=== PATIENT | female | born 1975 | race Two or more races ===

== ENCOUNTER 2024-10-21 02:45 | Inpatient (IN) | payer OTHER, MEDICAID ==
[~2024-10-21] VITALS: Ht 162.6 cm; Wt 161.1 kg
--- NOTE | 2024-10-21 03:23 | ED.PDOC ---
GI ASSESSMENT HPI Comments 48 year old female came to Er due to abdominal pain. Patient recently diagnosed with gallstones, for the past few days has been having epigastric pain, radiating to her right upper quadrant and upper back. Said abdominal pain would persists and was advised by her PCP to come to the ER. Chief Complaint: Abdominal Pain Time Seen by MD: 03:23 Reviewed Notes: Nurses Notes Allergies: Coded Allergies: Cephalexin (Verified Allergy, Intermediate, hives, 10/21/24) Home Meds Reported Medications Pantoprazole Sodium Sesquihydr (Pantoprazole Sodium) 40 Mg Tab, 1 TAB PO DAILY 10/21/24 Lisinopril (Lisinopril) 40 Mg Tab, 1 TAB PO DAILY 10/21/24 Metoprolol Tartrate (Lopressor) 25 Mg Tb, 1 TAB PO BID 10/21/24 Potassium Chloride (Potassium Chloride ER) 10 Meq Tab, 1 TAB PO DAILY 10/21/24 Atorvastatin Calcium (ATORVASTATIN CALCIUM) 20 Mg Tab, 1 TAB PO DAILY 10/21/24 Information Source: Patient Mode of Arrival: Ambulatory Timing: Days Duration: Since onset Prehospital treatment: None Quality: Cramping Vomitus: None Stool: Normal Severity: Moderate Recent: None Recent Hx of: Ulcer Disease, Abdominal Surgery Pain Location: Epigastric Modifying Factors: Nothing Associated sign and symptoms: Abdominal Pain Past Medical History PAST MEDICAL HISTORY: CHF, CVA, DM, Gallstones, GERD, TIA Surgical History: , Hysterectomy, Tonsillectomy SURGEON ASSISTANT History: Denies all SURGEON ASSISTANT Hx Family History Family History: Reviewed,noncontributory to illness Social History Smoker: Non-Smoker Alcohol: Denies ETOH Use Drugs: Denies Drug Use Lives In: Home Constitutional: denies: chills, diaphoresis, fatigue, fever, malaise, sweats, weakness, others EENTM: denies: blurred vision, double vision, ear bleeding, ear discharge, ear drainage, ear pain, ear ringing, eye pain, eye redness, hearing loss, mouth pain, mouth swelling, nasal discharge, nose bleeding, nose congestion, nose pain, photophobia, tearing, throat pain, throat swelling, voice changes, others Respiratory: denies: cough, hemoptysis, orthopnea, SOB at rest, shortness of breath, SOB with excertion, stridor, wheezing, others Cardiovascular: denies: chest pain, dizzy spells, diaphoresis, Dyspnea on exertion, edema, irregular heart beat, left arm pain, lightheadedness, pa lpitations, PND, syncope, others Gastrointestinal: reports: abdominal pain; denies: abdomen distended, blood streaked bowels, constipated, diarrhea, dysphagia, difficulty swallowing, hematemesis, melena, nausea, poor appetite, poor fluid intake, rectal bleeding, rectal pain, vomiting, others Genitourinary: denies: abnormal vagina bleeding, burning, dyspareunia, dysuria, flank pain, frequency, hematuria, incontinence, pain, , vagina dis charge, urgency, others Neurological: denies: dizziness, fainting, headache, left sided numbness, left sided weakness, numbness, paresthesia, pre-existing deficit, right sided numbness, right sided weakness, seizure, speech problems, tingling, tremors, weakness, others Musculoskeletal: denies: back pain, gout, joint pain, joint swelling, muscle pain, muscle stiffness, neck pain, others Integumetry: denies: bruises, change in color, change in hair/nails, dryness, laceration, lesions, lumps, rash, wounds, others Allergic/Immunocompromised: denies: Difficulty Healing, Frequent Infections, Hives, Itching, others Hematologic/Lymphatic: denies: anemia, blood clots, easy bleeding, easy bruising, swollen glands, others Endocrine: denies: excessive hunger, excessive sweating, excessive thirst, excessive urination, flushing, intolerance to cold, intolerance to heat, unexplained weight gain, unexplained weight loss, others Psychiatric: denies: anxiety, bipolar disorder, depression, hopeless, panic disorder, schizophrenia, sleepless, suicidal, others Physical Exam General Appearance: Moderate Distress, Normal HEENT: Normal ENT Inspection, Pharynx Normal, TMs Normal Neck: Full Range of Motion, Non-Tender, Normal, Normal Inspection Respiratory: Chest Non-Tender, Lungs Clear, No Accessory Muscle Use, No Respiratory Distress, Normal Breath Sounds Cardiovascular: No Edema, No JVD, No Murmur, No Gallop, Normal Peripheral Pulses, Regular Rate/Rhythm Breast Exam: Deferred Gastrointestinal: No Organomegaly, Non Tender, No Pulsatile Mass, Normal Bowel Sounds, Soft Genitalia: Deferred Pelvic: Deferred Rectal: Deferred Extremities: No calf tenderness, Normal capillary refill, Normal inspection, Normal range of motion, Non-tender, No pedal edema Musculoskeletal : Apperance: Normal Neurologic: Alert, automation test engineer II-XII nml as Tested, No Motor Deficits, Normal Affect, Normal Mood, No Sensory Deficits Cerebellar Function: NOT DONE Reflexes: NOT DONE Skin: Dry, Normal Color, Warm Peripheral Pulses: 3+ Radial (R), 3+ Radial (L) Lymphatic: No Adenopathy Was a procedure done? Was a procedure done?: No GI differential Dx Differential Diagnosis: Cholecystitis, Constipation, Diverticular disease, Gastritis/PUD, Gastroenteritis, Pancreatitis, UTI, Urolithiasis, Electrolyte Imbalance, Food Poisoning X-Ray, Labs, Meds, VS Vital Signs Date Time Temp Pulse Resp B/P (MAP) Pulse Ox O2 Delivery O2 Flow Rate FiO2 10/21/24 09:55 97.6 92 18 108/69 (82) 95 97.6 10/21/24 07:33 95 20 95 Room Air 10/21/24 07:33 98.0 95 20 102/54 (70) 95 98.0 10/21/24 05:34 89 18 101/65 10/21/24 04:41 97 20 122/73 10/21/24 04:25 97.7 97 20 122/73 (89) 96 97.7 10/21/24 03:07 97.6 99 18 129/78 (95) 98 Lab Test 10/21/24 03:27 10/21/24 03:13 Range/Units White Blood Count 11.9 H 4.4-10.8 10^3/uL Red Blood Count 5.07 4.0-5.20 10^6/uL Hemoglobin 13.7 12.2-16.2 g/dL Hematocrit 42.5 36.0-46.0 % Mean Corpuscular Volume 83.8 80.0-100.0 fL Mean Corpuscular Hemoglobin 27.1 L 28.0-32.0 pg Mean Corpuscular Hemoglobin Concent 32.4 32.0-36.0 g/dL Red Cell Distribution Width 15.3 H 11.8-14.3 % Platelet Count 266 140-450 10^3/uL Mean Platelet Volume 9.3 6.9-10.8 fL Neutrophils (%) (Auto) 58.3 37.0-80.0 % Lymphocytes (%) (Auto) 30.6 10.0-50.0 % Monocytes (%) (Auto) 9.4 0.0-12.0 % Eosinophils (%) (Auto) 1.0 0.0-7.0 % Basophils (%) (Auto) 0.7 0.0-2.0 % Neutrophils # (Auto) 6.9 1.6-8.6 10 ^3/uL Lymphocytes # (Auto) 3.6 0.4-5.4 10 ^3/uL Monocytes # (Auto) 1.1 0-1.3 10 ^3/uL Eosinophils # (Auto) 0.1 0-0.8 10 ^3/uL Basophils # (Auto) 0.1 0-0.2 10 ^3/uL Nucleated Red Blood Cells 0.1 % Sodium Level 143 136-145 mmol/L Potassium Level 3.5 3.5-5.1 mmol/L Chloride Level 104 98-107 mmol/L Carbon Dioxide Level 27 20-31 mmol/L Anion Gap 12 5-15 Blood Urea Nitrogen 42 H 9-23 mg/dL Creatinine 1.77 H 0.550-1.02 mg/dL Glomerular Filtration Rate Calc 35 >90 mL/min BUN/Creatinine Ratio 23.7 H 10.0-20.0 Serum Glucose 88 74-106 mg/dL Calcium Level 10.0 8.7-10.4 mg/dL Phosphorus Level 5.8 H 2.4-5.1 mg/dL Magnesium Level 2.4 1.6-2.6 mg/dL Total Bilirubin 0.6 0.2-1.0 mg/dL Aspartate Amino Transferase (AST) 18 13-40 U/L Alanine Aminotransferase (ALT) 29 7-40 U/L Alkaline Phosphatase 109 46-116 U/L B-Type Natriuretic Peptide 34.72 0-100 pg/mL Total Protein 7.7 5.7-8.2 g/dL Albumin 4.8 3.2-4.8 g/dL Lipase 53 12-53 U/L Vitamin D 25-Hydroxy Pending Parathyroid Hormone (Intact) Pending Urine Color Yellow Yellow Urine Clarity Clear Clear Urine pH 5.0 5.0-9.0 Urine Specific [place] 1.024 1.001-1.035 Urine Protein Trace H Negative Urine Ketones Negative Negative Urine Blood Negative Negative /uL Urine Nitrite Negative Negative Urine Bilirubin Negative Negative Urine Urobilinogen Normal Negative mg/dL Urine Leukocyte Esterase Trace Negative /uL Urine RBC 2 0 - 4 /hpf Urine WBC 1 0 - 5 /hpf Urine Squamous Epithelial Cells Few <5 /hpf Urine Bacteria Few H None Seen /hpf Urine Hyaline Casts Many 0 - 2 /lpf Urine Glucose Normal Normal mg/dL Current Medications Medications (Trade) Dose Ordered Sig/Zoila Route Start Time Stop Time Status Last Admin Ondansetron HCl (Zofran) 4 mg ONCE ONCE IV 10/21/24 03:15 10/21/24 03:17 DC 10/21/24 04:40 Hydromorphone HCl (Dilaudid Injection) 1 mg ONCE ONCE IV 10/21/24 03:15 10/21/24 03:17 DC 10/21/24 04:41 Ketorolac Tromethamine (Toradol Injection) 15 mg ONCE ONCE IV 10/21/24 03:15 10/21/24 03:17 DC 10/21/24 04:40 Patient alert. Came in for abdominal pain. Vitals stable. Answering all questions. Continues to have abdominal pain. Was given pain medication. Was given Zofran. WBC elevated. Hemoglobin within normal limits. Reviewed her history. Explained to the patient. Continue cardiac monitoring. Time of 1ST Reevaluation: 03:18 Reevaluation 1ST: Unchanged Time of 2ND Reevaluation: 05:44 (awaiting Gallbladder ultrasound , labs reviewed and interpreted by me show no major concerns) Reevaluation 2ND: Unchanged Patient Education/Counseling: Diagnosis, Treatment Family Education/Counseling: No Family Present Departure 1 Departure Time of Disposition: 07:45 Impression: Primary Impression: Acute abdominal pain Additional Impression: Gallbladder disease Disposition: 09 ADMITTED INPATIENT Admit to: Med Surg Condition: Guarded Critical Care Note Critical Care Time?: No Stability Stability form required: No Heart Score Heart Score: Heart Score Response (Comments) Value History N/A 0 EKG N/A 0 Age N/A 0 Risk Factors N/A 0 Troponin N/A 0 Total 0 I personally scribed for SARAH JOSHUA MD ([email or web address]) on 10/21/24 at 03:23. Electronically submitted by Parviz Roberts ([email or web address]). I personally scribed for SARAH JOSHUA MD ([email or web address]) on 10/21/24 at 03:29. Electronically submitted by Parviz Roberts ([email or web address]). SARAH JOSHUA MD Oct 21, 2024 03:23 ZULEYKA MORRIS MD Oct 21, 2024 07:46
[2024-10-21 03:35] LABS: Basophils # (auto) 0.1 10 ^3/uL (0-0.2); Basophils % (auto) 0.7 % (0.0-2.0); Eosinophils # (auto) 0.1 10 ^3/uL (0-0.8); Hematocrit 42.5 % (36.0-46.0); Hemoglobin 13.7 g/dL (12.2-16.2); Lymphocytes # (auto) 3.6 10 ^3/uL (0.4-5.4); Lymphocytes % (auto) 30.6 % (10.0-50.0); Mean Corpuscular Hemoglobin 27.1 pg (28.0-32.0); Mean Corpuscular Hgb Conc. 32.4 g/dL (32.0-36.0); Mean Corpuscular Volume 83.8 fL (80.0-100.0); Monocytes # (auto) 1.1 10 ^3/uL (0-1.3); Monocytes % (auto) 9.4 % (0.0-12.0); Neutrophils # (auto) 6.9 10 ^3/uL (1.6-8.6); Neutrophils % (auto) 58.3 % (37.0-80.0); Nucleated Red Blood Cells % 0.1 %; Platelet Count (auto) 266 10^3/uL (140-450); Red Blood Cells 5.07 10^6/uL (4.0-5.20); Red Cell Distribution Width 15.3 % (11.8-14.3); White Blood Cell 11.9 10^3/uL (4.4-10.8)
[2024-10-21 04:06] LABS: Alanine Aminotransferase 29 U/L (7-40); Albumin 4.8 g/dL (3.2-4.8); Alkaline Phosphatase 109 U/L (46-116); Anion Gap 12 (5-15); Aspartate Aminotransferase 18 U/L (13-40); BUN/Creatinine Ratio 23.7 (10.0-20.0); Carbon Dioxide 27 mmol/L (20-31); Chloride 104 mmol/L (98-107); Glucose 88 mg/dL (74-106); Potassium 3.5 mmol/L (3.5-5.1); Sodium 143 mmol/L (136-145)
[2024-10-21 04:07] LABS: Bilirubin, Total 0.6 mg/dL (0.2-1.0); Total Protein 7.7 g/dL (5.7-8.2)
[2024-10-21 04:07] LABS: Urine Bacteria FEW /hpf (None Seen); Urine Blood Negative /uL (Negative); Urine Clarity Clear (Clear); Urine Color Yellow (Yellow); Urine Hyaline Cast MANY /lpf (0 - 2); Urine Protein, UAD TRACE (Negative); Urine Specific Gravity 1.024 (1.001-1.035); Urine Squamous Epithelial Cell FEW /hpf (<5); Urine Urobilinogen Normal (Negative); Urine WBC 1 /hpf (0 - 5)
[2024-10-21 04:22] LABS: Blood Urea Nitrogen 42 mg/dL (9-23); Lipase 53 U/L (12-53)
[2024-10-21] MEDS: KETOROLAC TROMETH 30 MG/ML 1ML VIAL IV ONE (04:40)
[2024-10-21] MEDS: ONDANSETRON HCL 4 MG/2 ML VIAL IV ONE (04:40)
[2024-10-21] MEDS: HYDROmorphone HCL 2 MG/ML VL/or syr IV ONE (04:41)
--- NOTE | 2024-10-21 07:42 | DVH ---
INDICATION: RUQ pain, h/o gallstones TECHNIQUE: Real time ultrasonography of the right upper quadrant was performed. COMPARISON: None FINDINGS: The liver appears normal in echogenicity estimated 16.2 cm. Gallbladder appears unremarkable without evidence of pericholecystic fluid, wall thickening, or cholelithiasis. Common bile duct is obscured. The right kidney estimated at 9.6 cm in length and appears unremarkable. Obscured pancreas and intra hepatic IVC. IMPRESSION: 1. Limited but unremarkable evaluation of the right upper quadrant.
[2024-10-21] MEDS ORDERED: ACETAMINOPHEN 325 MG TAB PO PRN (11:15)
[2024-10-21] MEDS ORDERED: ONDANSETRON HCL 4 MG/2 ML VIAL IV PRN (11:15)
[2024-10-21] MEDS ORDERED: MET25T PO (11:35)
[2024-10-21] MEDS ORDERED: PANT40T PO (11:35)
[2024-10-21] MEDS ORDERED: LISI40TA16 PO (11:35)
[2024-10-21] MEDS ORDERED: POTA-228 PO (11:35)
[2024-10-21] MEDS ORDERED: ATOR20TA50 PO (11:35)
--- NOTE | 2024-10-21 11:54 | DVHHP2 ---
History of Present Illness Reason for Visit: abdominal pain History of Present Illness Jennifer Guzman is a 48-year-old female with past medical history of CHF, CVA with bilateral weakness, gallstones, GERD, abdominal reconstruction, brain tumors, , hysterectomy, and tonsillectomy presents to the ED with abominal pain x1 month but per patient got progressively worse within the last day. She states that her pain is pressure-like and burning also cramping and it of 10 and constant. Patient also reports that she went to [facility] recently and was diagnosed with gallstones but apparently surgery was delayed. Patient reports that she has a history of CVAs weakness in both right and left uses a cane for ambulation. Patient also reports urge incontinence when voiding. Patient denies fever, chills, chest pain, shortness of breath, headache, lightheadedness, and dizziness. 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 GI: GERD Past Medical History Brain tumors Past Surgical History: , Hysterectomy, Other, Tonsillectomy Past Surgical History abdominal reconstruction Family History: Cancer, CVA, Other (Both mom and dad's side have CA, heart disease, stroke, and DJD) Smoke: No ALCOHOL: none Drugs: None Lives: with Family Domestic Violence: Neg Review of Systems Constitutional: No: Fever, Chills, Sweats, Weakness, Malaise, Other Eyes: No: Pain, Vision change, Conjunctivae inflammation, Eyelid inflammation, Other, Redness ENT: No: Ear pain, Ear discharge, Nose pain, Nose discharge, Nose congestion, Mouth pain, Mouth swelling, Throat pain, Throat swelling, Other Respiratory: No: Cough, Dry, Shortness of breath, SOB with excertion, Wheezing, Hemoptysis, Pleuritic Pain, Sputum, Wheezing, Other Cardiovascular: No: Chest Pain, Palpitations, Orthopnea, Paroxysmal Noc. Dyspnea, Edema, Lt Headedness, Other Gastrointestinal: Abdominal Pain; No: Nausea, Vomiting, Diarrhea, Constipation, Melena, Hematochezia, Other Genitourinary: No Dysuria, No Frequency; Incontinence; No Hematuria, No Retention, No Other Musculoskeletal: No: other, neck pain, shoulder pain, arm pain, back pain, hand pain, leg pain, foot pain Skin: No: Rash, Lesions, Jaundice, Bruising, Other Neurological: Weakness (hx of CVA with edgar weakness) Allergies: Coded Allergies: Cephalexin (Verified Allergy, Intermediate, hives, 10/21/24) Exam Vital Signs Vital Signs Date Time Temp Pulse Resp B/P (MAP) Pulse Ox O2 Delivery O2 Flow Rate FiO2 10/21/24 09:55 97.6 92 18 108/69 (82) 95 97.6 10/21/24 07:33 Room Air General Appearance: Alert, Oriented X3, Cooperative, No acute distress HEENT: Atraumatic, PERRLA, EOMI, Mucous membr. moist/pink Respiratory: Clear to auscultation, Normal air movement Cardiovascular: Normal S1, Normal S2, No murmurs Abdominal: Soft, No hepatospenomegaly, No masses Extremities: No clubbing, No cyanosis, No edema, Normal pulses Skin: No breakdown, No significant lesion Neuro: Normal speech, Normal tone, Sensation intact, Other (uses cane and hx of CVA edgar weakness) Psych/Mental Status: Mental status NL, Mood NL Labs/Xrays Labs Test 10/21/24 03:27 10/21/24 03:13 Range/Units White Blood Count 11.9 H 4.4-10.8 10^3/uL Red Blood Count 5.07 4.0-5.20 10^6/uL Hemoglobin 13.7 12.2-16.2 g/dL Hematocrit 42.5 36.0-46.0 % Mean Corpuscular Volume 83.8 80.0-100.0 fL Mean Corpuscular Hemoglobin 27.1 L 28.0-32.0 pg Mean Corpuscular Hemoglobin Concent 32.4 32.0-36.0 g/dL Red Cell Distribution Width 15.3 H 11.8-14.3 % Platelet Count 266 140-450 10^3/uL Mean Platelet Volume 9.3 6.9-10.8 fL Neutrophils (%) (Auto) 58.3 37.0-80.0 % Lymphocytes (%) (Auto) 30.6 10.0-50.0 % Monocytes (%) (Auto) 9.4 0.0-12.0 % Eosinophils (%) (Auto) 1.0 0.0-7.0 % Basophils (%) (Auto) 0.7 0.0-2.0 % Neutrophils # (Auto) 6.9 1.6-8.6 10 ^3/uL Lymphocytes # (Auto) 3.6 0.4-5.4 10 ^3/uL Monocytes # (Auto) 1.1 0-1.3 10 ^3/uL Eosinophils # (Auto) 0.1 0-0.8 10 ^3/uL Basophils # (Auto) 0.1 0-0.2 10 ^3/uL Nucleated Red Blood Cells 0.1 % Sodium Level 143 136-145 mmol/L Potassium Level 3.5 3.5-5.1 mmol/L Chloride Level 104 98-107 mmol/L Carbon Dioxide Level 27 20-31 mmol/L Anion Gap 12 5-15 Blood Urea Nitrogen 42 H 9-23 mg/dL Creatinine 1.77 H 0.550-1.02 mg/dL Glomerular Filtration Rate Calc 35 >90 mL/min BUN/Creatinine Ratio 23.7 H 10.0-20.0 Serum Glucose 88 74-106 mg/dL Calcium Level 10.0 8.7-10.4 mg/dL Total Bilirubin 0.6 0.2-1.0 mg/dL Aspartate Amino Transferase (AST) 18 13-40 U/L Alanine Aminotransferase (ALT) 29 7-40 U/L Alkaline Phosphatase 109 46-116 U/L Total Protein 7.7 5.7-8.2 g/dL Albumin 4.8 3.2-4.8 g/dL Lipase 53 12-53 U/L Urine Color Yellow Yellow Urine Clarity Clear Clear Urine pH 5.0 5.0-9.0 Urine Specific [place] 1.024 1.001-1.035 Urine Protein Trace H Negative Urine Ketones Negative Negative Urine Blood Negative Negative /uL Urine Nitrite Negative Negative Urine Bilirubin Negative Negative Urine Urobilinogen Normal Negative mg/dL Urine Leukocyte Esterase Trace Negative /uL Urine RBC 2 0 - 4 /hpf Urine WBC 1 0 - 5 /hpf Urine Squamous Epithelial Cells Few <5 /hpf Urine Bacteria Few H None Seen /hpf Urine Hyaline Casts Many 0 - 2 /lpf Urine Glucose Normal Normal mg/dL INDICATION: RUQ pain, h/o gallstones TECHNIQUE: Real time ultrasonography of the right upper quadrant was performed. COMPARISON: None FINDINGS: The liver appears normal in echogenicity estimated 16.2 cm. Gallbladder appears unremarkable without evidence of pericholecystic fluid, wall thickening, or cholelithiasis. Common bile duct is obscured. The right kidney estimated at 9.6 cm in length and appears unremarkable. Obscured pancreas and intrahepatic IVC. IMPRESSION: 1. Limited but unremarkable evaluation of the right upper quadrant. Exam: CT CT AB PEL WO CON-NO ORAL OR IV History: abd pain Comparison Study: None available at time of dictation. TECHNIQUE: Multidetector CT of the abdomen was performed from lung bases to pubic symphysis. Imaging was performed without IV contrast. Axial, coronal and sagittal multiplanar reformats were obtained from the axial data set by the technologist. Radiation Dose Information: CT Dose: CTDI volume is 27.67 mGy. Dose-length product is 1562.46 mGy*cm FINDINGS: Evaluation of solid organs is limited due to lack of intravenous contrast use. Findings: Lung Bases: No acute or significant lung base finding. Normal heart size. No pleural or pericardial effusion. Liver: The liver is normal in size. No focal lesions. Gallbladder and Biliary Tree: Unremarkable Spleen: Unremarkable Pancreas: The pancreas is grossly normal in appearance. Adrenal Glands: Unremarkable Kidneys: Kidneys are grossly normal without calculi or hydronephrosis. Bladder: Grossly unremarkable for degree of distention. Bowel: The stomach is grossly normal in appearance. Small bowel and colon are normal in caliber and distribution. The appendix is not visualized; however, no secondary findings of acute appendicitis identified. Ascites: Absent Lymphadenopathy: No mesenteric, retroperitoneal or periportal lymphadenopathy. Abdominal Wall and Mesentery: Unremarkable. Vasculature: The visualized abdominal aorta is normal in size and caliber. Evaluation of abdominal and pelvic vessels is limited due to lack of intravenous contrast. Pelvic Organs: Unremarkable Musculoskeletal: No aggressive focal bony lesions, acute fractures or dislocation. Bony spondylosis degenerative disc changes throughout the lumbar spine. Soft tissues: Unremarkable IMPRESSION: 1. No calcified gallstones 2. No CT findings suggest bowel obstruction. Moderately large stool burden throughout the colon correlate for possible constipation. 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 CONS 10/21/24 Verified -[place] 11:01 Furosemide Injection PHA 10/22/24 Verified (Lasix Injection) 10:00 NS PHA 10/21/24 Verified 11:15 Ceftriaxone Ivpb PHA 10/22/24 Verified Rocephin 09:00 Ceftriaxone Ivpb PHA 10/21/24 Verified Rocephin 11:15 Admit ADMIT 10/21/24 Verified 11:01 Allergies MARKO 10/21/24 Verified 11:01 Code Status CODE 10/21/24 Verified 11:01 Hydrocodone-Acet PHA 10/21/24 Verified 5/325mg Tab ([place] 11:15 Ondansetron Hcl PHA 10/21/24 Verified (Zofran) 11:15 Complete Blood Count LAB 10/22/24 Verified 04:00 Comprehensive LAB 10/22/24 Verified Metabolic Panel 04:00 Npo (Nothing By DIET 10/21/24 Verified Mouth) Diet Lunch Acetaminophen Tablet PHA 10/21/24 Verified (Tylenol Tablet) 11:15 Morphine Sulfate PHA 10/21/24 Verified Injection 11:15 Aspirin Enteric PHA 10/22/24 Verified Coated Tablet 10:00 Aspirin Enteric PHA 10/21/24 Verified Coated Tablet 11:15 Date of Service: Oct 21, 2024 Billing Provider: PHI ZUNIGA Common Visit Codes: 98010-BITOSEI INP/OBS CARE (MOD) PHI ZUNIGA Oct 21, 2024 11:54
[2024-10-21] MEDS: SODIUM CHLORIDE 0.9% 1,000 ML IV SCH (11:56)
[2024-10-21] MEDS: ASPirin-EC 81 mg tab PO ONE (12:02)
--- NOTE | 2024-10-21 12:28 | DVH ---
Exam: CT CT AB PEL WO CON-NO ORAL OR IV History: abd pain Comparison Study: None available at time of dictation. TECHNIQUE: Multidetector CT of the abdomen was performed from lung bases to pubic symphysis. Imaging was performed without IV contrast. Axial, coronal and sagittal multiplanar reformats were obtained fr om the axial data set by the technologist. Radiation Dose Information: CT Dose: CTDI volume is 27.67 mGy. Dose-length product is 1562.46 mGy*cm FINDINGS: Evaluation of solid organs is limited due to lack of intravenous contrast use. Findings: Lung Bases: No acute or significant lung base finding. Normal heart size. No pleural or pericardial effusion. Liver: The liver is normal in size. No focal lesions. Gallbladder and Biliary Tree: Unremarkable Spleen: Unremarkable Pancreas: The pancreas is grossly normal in appearance. Adrenal Glands: Unremarkable Kidneys: Kidneys are grossly normal without calculi or hydronephrosis. Bladder: Grossly unremarkable for degree of distention. Bowel: The stomach is grossly normal in appearance. Small bowel and colon are normal in caliber and d istribution. The appendix is not visualized; however, no secondary findings of acute appendicitis id entified. Ascites: Absent Lymphadenopathy: No mesenteric, retroperitoneal or periportal lymphadenopathy. Abdominal Wall and Mesentery: Unremarkable. Vasculature: The visualized abdominal aorta is normal in size and caliber. Evaluation of abdominal a nd pelvic vessels is limited due to lack of intravenous contrast. Pelvic Organs: Unremarkable Musculoskeletal: No aggressive focal bony lesions, acute fractures or dislocation. Bony spondylosis d egenerative disc changes throughout the lumbar spine. Soft tissues: Unremarkable IMPRESSION: 1. No calcified gallstones 2. No CT findings suggest bowel obstruction. Moderately large stool burden throughout the colon corre late for possible constipation. HS:Y Radiation optimization: All CT scans at this facility use at least one of these dose optimization santosh hniques: automated exposure control mA and/or kV adjustment per patient size (includes targeted exam s where dose is matched to clinical indication) or iterative reconstruction.
[2024-10-21] MEDS: cefTRIAXone 1GM/50ML D5W 50 ML IV ONE (12:33)
[2024-10-21] MEDS ORDERED: DOCUSATE SOD 100 MG CAP PO PRN (13:00)
--- NOTE | 2024-10-21 13:58 | DVH ---
CHEST RADIOGRAPH Indication: HF Technique: Single frontal view of the chest was obtained COMPARISON: None FINDINGS: Lines and Tubes: None Lungs: Clear Pleura: No effusion. No pneumothorax. Cardiomediastinal contours: Unremarkable Bones: Unremarkable IMPRESSION: 1. Mild dextroscoliosis of the thoracolumbar spine. 2. No infiltrates 3. No pleural effusions or adenopathy
--- NOTE | 2024-10-21 15:24 | DVHINCON2 ---
Date of service: Oct 21, 2024 Referring Physician Caron Roldan NP Reason for Consultation Acute kidney injury History of Present Illness Patient is 48-year-old obese female with past medical history significant for CVA, DM, Gallstones, GERD, morbid obesity and TIA is admitted for abdominal pa in. On admission patient found to have elevated BUN and creatinine nephrology is consulted for acute kidney injury Past Medical History PAST MEDICAL HISTORY: CVA, DM, Gallstones, GERD, TIA, morbid obesity Past Surgical History Surgical History: , Hysterectomy, Tonsillectomy Allergies: Coded Allergies: Cephalexin (Verified Allergy, Intermediate, hives, 10/21/24) Home Meds Reported Medications Pantoprazole Sodium Sesquihydr (Pantoprazole Sodium) 40 Mg Tab, 1 TAB PO DAILY 10/21/24 Lisinopril (Lisinopril) 40 Mg Tab, 1 TAB PO DAILY 10/21/24 Metoprolol Tartrate (Lopressor) 25 Mg Tb, 1 TAB PO BID 10/21/24 Potassium Chloride (Potassium Chloride ER) 10 Meq Tab, 1 TAB PO DAILY 10/21/24 Atorvastatin Calcium (ATORVASTATIN CALCIUM) 20 Mg Tab, 1 TAB PO DAILY 10/21/24 Current Medications Current Medications Medications (Trade) Dose Ordered Sig/Zoila Route PRN Reason Start Time Stop Time Status Last Admin Furosemide (Lasix Injection) 40 mg DAILY IV 10/22/24 10:00 10/22/24 09:01 Ceftriaxone Sodium 50 ml @ 100 mls/hr DAILY@09 IV 10/22/24 09:00 10/22/24 08:52 Aspirin (Ecotrin Enteric Coated Tablet) 81 mg DAILY PO 10/22/24 10:00 10/22/24 09:04 Docusate Sodium (Colace Capsule) 100 mg DAILYPRN PRN PO FOR CONSTIPATION 10/21/24 13:00 Review of Systems All 12 item review of systems reviewed with the patient nonsignificant except what is mentioned in the history of present illness H&P Exam Vital Signs/I&O Vital Sign Date Time Temp Pulse Resp B/P (MAP) Pulse Ox O2 Delivery O2 Flow Rate FiO2 10/22/24 12:25 79 20 107/58 10/22/24 10:53 97.8 95 97.8 10/22/24 08:05 Room Air* 0 21 Intake and Output 10/21/24 10/22/24 19:00 07:00 Intake Total 425 ml 300 ml Balance 425 ml 300 ml Intake Oral 300 ml IV Total 425 ml # Voids 1 Physical Exam Obese female awake and alert Lungs clear to auscultation bilaterally Cardiac exam regular rate and rhythm GI obese bowel sounds are present normal Extremities no clubbing cyanosis or edema Neuro nonfocal Labs/Diagnostic Data Labs/Diagnostic Data Laboratory Tests Test 10/22/24 04:57 10/21/24 03:27 10/21/24 03:13 Range/Units White Blood Count 9.6 11.9 H 4.4-10.8 10^3/uL Red Blood Count 4.11 5.07 4.0-5.20 10^6/uL Hemoglobin 11.2 #L 13.7 12.2-16.2 g/dL Hematocrit 34.5 #L 42.5 36.0-46.0 % Mean Corpuscular Volume 83.9 83.8 80.0-100.0 fL Mean Corpuscular Hemoglobin 27.2 L 27.1 L 28.0-32.0 pg Mean Corpuscular Hemoglobin Concent 32.4 32.4 32.0-36.0 g/dL Red Cell Distribution Width 15.2 H 15.3 H 11.8-14.3 % Platelet Count 204 266 140-450 10^3/uL Mean Platelet Volume 9.7 9.3 6.9-10.8 fL Neutrophils (%) (Auto) 64.3 58.3 37.0-80.0 % Lymphocytes (%) (Auto) 25.2 30.6 10.0-50.0 % Monocytes (%) (Auto) 8.1 9.4 0.0-12.0 % Eosinophils (%) (Auto) 2.1 1.0 0.0-7.0 % Basophils (%) (Auto) 0.3 0.7 0.0-2.0 % Neutrophils # (Auto) 6.2 6.9 1.6-8.6 10 ^3/uL Lymphocytes # (Auto) 2.4 3.6 0.4-5.4 10 ^3/uL Monocytes # (Auto) 0.8 1.1 0-1.3 10 ^3/uL Eosinophils # (Auto) 0.2 0.1 0-0.8 10 ^3/uL Basophils # (Auto) 0 0.1 0-0.2 10 ^3/uL Nucleated Red Blood Cells 0.0 0.1 % Sodium Level 139 143 136-145 mmol/L Potassium Level 4.1 3.5 3.5-5.1 mmol/L Chloride Level 105 104 98-107 mmol/L Carbon Dioxide Level 29 27 20-31 mmol/L Anion Gap 5 12 5-15 Blood Urea Nitrogen 42 H 42 H 9-23 mg/dL Creatinine 1.42 H 1.77 H 0.550-1.02 mg/dL Glomerular Filtration Rate Calc 46 35 >90 mL/min BUN/Creatinine Ratio 29.6 H 23.7 H 10.0-20.0 Serum Glucose 118 H 88 74-106 mg/dL Calcium Level 9.1 10.0 8.7-10.4 mg/dL Total Bilirubin 0.5 0.6 0.2-1.0 mg/dL Aspartate Amino Transferase (AST) 19 18 13-40 U/L Alanine Aminotransferase (ALT) 22 29 7-40 U/L Alkaline Phosphatase 93 109 46-116 U/L Total Protein 5.9 7.7 5.7-8.2 g/dL Albumin 3.7 4.8 3.2-4.8 g/dL Phosphorus Level 5.8 H 2.4-5.1 mg/dL Magnesium Level 2.4 1.6-2.6 mg/dL B-Type Natriuretic Peptide 34.72 0-100 pg/mL Lipase 53 12-53 U/L Urine Color Yellow Yellow Urine Clarity Clear Clear Urine pH 5.0 5.0-9.0 Urine Specific [place] 1.024 1.001-1.035 Urine Protein Trace H Negative Urine Ketones Negative Negative Urine Blood Negative Negative /uL Urine Nitrite Negative Negative Urine Bilirubin Negative Negative Urine Urobilinogen Normal Negative mg/dL Urine Leukocyte Esterase Trace Negative /uL Urine RBC 2 0 - 4 /hpf Urine WBC 1 0 - 5 /hpf Urine Squamous Epithelial Cells Few <5 /hpf Urine Bacteria Few H None Seen /hpf Urine Hyaline Casts Many 0 - 2 /lpf Urine Glucose Normal Normal mg/dL Assessment Acute kidney injury superimposed Chronic Kidney Disease secondary to Hemodynamic mediated Diabetic ketoacidosis Uncontrolled diabetes mellitus Hyperglycemia Hyponatremia due to dehydration Anemia of chronic kidney disease Recommendations Closely monitor fluid and electrolytes Avoid nephrotoxic medications Strict I&Os Change IV fluid to hypotonic half normal saline Kidney ultrasound reported questionable left hydronephrosis Insulin sliding scale Check amylase and lipase We will continue to follow Patient seen and examined by myself. I discussed my plan of care with the patient, her and the primary nurse at the bedside I would like to thank Caron for the consult, will follow Plan discussed with: Patient, Spouse ANNABELLE EWING MD Oct 21, 2024 15:24
[2024-10-21 15:49] LABS: Magnesium 2.4 mg/dL (1.6-2.6)
[2024-10-21 15:52] LABS: Phosphorus 5.8 mg/dL (2.4-5.1)
[2024-10-21 17:44] VITALS: BP 144/77; PULSE 86; RESP 16; TEMP 97.8; O2SAT 95; O2SAT 99
[2024-10-21 20:00] VITALS: PULSE 86; RESP 16; O2SAT 100
[2024-10-21 21:00] VITALS: BP 109/56; PULSE 86; RESP 16; TEMP 98.1; O2SAT 100
[2024-10-21] MEDS: MORPHINE SULFATE INJ 2 MG/ml SYRG IV PRN (23:53)
[2024-10-22] VITALS (7 sets, daily range): BP systolic 111–129; BP diastolic 53–74; PULSE 85–90; RESP 14–18; TEMP 97.8–98.1; O2SAT 93–100
[2024-10-22 05:46] LABS: Basophils # (auto) 0 10 ^3/uL (0-0.2); Basophils % (auto) 0.3 % (0.0-2.0); Eosinophils # (auto) 0.2 10 ^3/uL (0-0.8); Eosinophils % (auto) 2.1 % (0.0-7.0); Hematocrit 34.5 % (36.0-46.0); Hemoglobin 11.2 g/dL (12.2-16.2); Lymphocytes # (auto) 2.4 10 ^3/uL (0.4-5.4); Lymphocytes % (auto) 25.2 % (10.0-50.0); Mean Corpuscular Hemoglobin 27.2 pg (28.0-32.0); Mean Corpuscular Hgb Conc. 32.4 g/dL (32.0-36.0); Mean Corpuscular Volume 83.9 fL (80.0-100.0); Monocytes # (auto) 0.8 10 ^3/uL (0-1.3); Monocytes % (auto) 8.1 % (0.0-12.0); Neutrophils # (auto) 6.2 10 ^3/uL (1.6-8.6); Neutrophils % (auto) 64.3 % (37.0-80.0); Platelet Count (auto) 204 10^3/uL (140-450); Red Blood Cells 4.11 10^6/uL (4.0-5.20); Red Cell Distribution Width 15.2 % (11.8-14.3); White Blood Cell 9.6 10^3/uL (4.4-10.8)
[2024-10-22 06:04] LABS: Alanine Aminotransferase 22 U/L (7-40); Alkaline Phosphatase 93 U/L (46-116); Anion Gap 5 (5-15); Aspartate Aminotransferase 19 U/L (13-40); Calcium 9.1 mg/dL (8.7-10.4); Carbon Dioxide 29 mmol/L (20-31); Chloride 105 mmol/L (98-107); Potassium 4.1 mmol/L (3.5-5.1); Sodium 139 mmol/L (136-145)
[2024-10-22 06:05] LABS: Albumin 3.7 g/dL (3.2-4.8); BUN/Creatinine Ratio 29.6 (10.0-20.0); Bilirubin, Total 0.5 mg/dL (0.2-1.0)
[2024-10-22 06:06] LABS: Total Protein 5.9 g/dL (5.7-8.2)
[2024-10-22 06:07] LABS: Blood Urea Nitrogen 42 mg/dL (9-23); Glucose 118 mg/dL (74-106)
[2024-10-22] MEDS: cefTRIAXone 1GM/50ML D5W 50 ML IV SCH (08:52)
[2024-10-22] MEDS: FUROSEMIDE 40 MG/4 ML VIAL IV SCH (09:01)
[2024-10-22] MEDS: ASPirin-EC 81 mg tab PO SCH (09:04)
[2024-10-22] MEDS: HYDROmorphone HCL 2 MG/ML VL/or syr IV ONE (12:25)
--- NOTE | 2024-10-22 12:39 | DVHPN2 ---
Progress Note Date Seen: Oct 22, 2024 Medical Necessity Reason Pt with a Central, PICC or Fol: No Subjective Review of Systems: GI:Abnormal Other Systems: Patient seen and examined by myself today in follow-up Objective vital signs Vital Sign Date Time Temp Pulse Resp B/P (MAP) Pulse Ox O2 Delivery O2 Flow Rate FiO2 10/22/24 12:25 79 20 107/58 10/22/24 10:53 97.8 95 97.8 10/22/24 08:05 Room Air* 0 21 Total Intake and Output 10/21/24 10/21/24 10/22/24 15:00 23:00 07:00 Intake Total 275 ml 150 ml 300 ml Balance 275 ml 150 ml 300 ml medications Current Medications Medications Dose Ordered Sig/Zoila Route Start Time Stop Time Status Last Admin Dose Admin Furosemide 40 mg DAILY IV 10/22/24 10:00 10/22/24 09:01 Sodium Chloride 1,000 ml @ 75 mls/hr [id number] IV 10/21/24 11:15 10/21/24 11:56 Ceftriaxone Sodium 50 ml @ 100 mls/hr DAILY@09 IV 10/22/24 09:00 10/22/24 08:52 Acetaminophen/ Hydrocodone Bitart 1 tab Q4HP PRN PO 10/21/24 11:15 Ondansetron HCl 4 mg Q4HP PRN IV 10/21/24 11:15 Acetaminophen 650 mg Q6HP PRN PO 10/21/24 11:15 Morphine Sulfate 2 mg Q4HPRN PRN IV 10/21/24 11:15 10/22/24 06:16 Aspirin 81 mg DAILY PO 10/22/24 10:00 10/22/24 09:04 Docusate Sodium 100 mg DAILYPRN PRN PO 10/21/24 13:00 Examination: LUNGS:Normal, CVS:Normal, MSK:Normal laboratory and microbiology Laboratory Tests 10/22/24 04:57 Test 10/22/24 04:57 Range/Units Serum Glucose 118 H 74-106 mg/dL Problem List/Assessment/Plan Problem List/Assessment/Plan Acute kidney injury superimposed Chronic Kidney Disease stage 3 secondary hemodynamic mediated Morbid obesity Abdominal pain Diabetes mellitus type 2 Anemia of chronic kidney disease Recommendations Kidney function is improving No urine output charted Strict I&Os Insulin sliding scale Kidneys reported within normal limit on the CT scan GI consult We will continue to follow up Plan discussed with: Patient, Spouse My Orders My Orders Orders - ANNABELLE EWING MD Procedure Category Date Status Time Vitamin D, 25-Hydroxy LAB 10/21/24 In Process 15:32 Urine Sodium LAB 10/21/24 Logged 15:32 Urine LAB 10/21/24 Logged Protein/Creatinine Urine Creatinine LAB 10/21/24 Logged 15:32 ANNABELLE EWING MD Oct 22, 2024 12:39
[2024-10-22] MEDS: HYDROcodone-ACET 5/325MG TAB PO PRN (20:32)
--- NOTE | 2024-10-22 22:20 | DVHPN2 ---
Subjective The patient is seen and examined at bedside. Complain of severe pain and requests Dilaudid. Patient said she allergic to morphine. Reviewed: Care Plan, H&P, Labs, Medications, Previous Orders, Radiology Changes from previous H/P or p: No Changes Eyes: No Pain, No Vision change, No Conjunctivae inflammation, No Eyelid inflammation, No Other, No Redness ENT: No Ear pain, No Ear discharge, No Nose pain, No Nose discharge, No Nose congestion, No Mouth pain, No Mouth swelling, No Throat pain, No Throat swelling, No Other Cardiovascular: No Chest Pain, No Palpitations, No Orthopnea, No Paroxysmal Noc. Dyspnea, No Edema, No Lt Headedness, No Other Respiratory: No Cough, No Dry, No Shortness of breath, No SOB with excertion, No Wheezing, No Hemoptysis, No Pleuritic Pain, No Sputum, No Other Gastrointestinal: No Nausea, No Vomiting; Abdominal Pain; No Diarrhea, No Constipation, No Melena, No Hematochezia, No Other Genitourinary: No Dysuria, No Frequency; Incontinence; No Hematuria, No Retention, No Other Musculoskeletal: No other, No neck pain, No shoulder pain, No arm pain, No back pain, No hand pain, No leg pain, No foot pain Skin: No Rash, No Lesions, No Jaundice, No Bruising, No Other Objective Vitals Vital Signs Date Time Temp Pulse Resp B/P (MAP) Pulse Ox O2 Delivery O2 Flow Rate FiO2 10/22/24 21:00 98.1 87 18 126/74 (91) 94 98.1 10/22/24 08:05 Room Air* 0 21 Intake/Output Intake and Output 10/22/24 07:00 Intake Total 725 ml Balance 725 ml Intake Oral 300 ml IV Total 425 ml # Voids 1 General Appearance: Alert, Oriented X3, Cooperative, No acute distress HEENT: Atraumatic, PERRLA, EOMI, Mucous membr. moist/pink Neck: Supple Lungs: Clear to auscultation, Normal air movement Cardiovascular: Regular rate, Normal S1, Normal S2, No murmurs, Gallops, Rubs Abdomen: Normal bowel sounds, Soft, No tenderness Neuro: Cranial nerves 3-12 NL Psych/Mental Status: Mental status NL Medications Current Medications Medications Dose Ordered Sig/Zoila Route Start Time Stop Time Status Last Admin Dose Admin Furosemide 40 mg DAILY IV 10/22/24 10:00 10/22/24 09:01 40 MG Sodium Chloride 1,000 ml @ 75 mls/hr [id number] IV 10/21/24 11:15 10/21/24 11:56 75 MLS/HR Ceftriaxone Sodium 50 ml @ 100 mls/hr DAILY@09 IV 10/22/24 09:00 10/22/24 08:52 100 MLS/HR Acetaminophen/ Hydrocodone Bitart 1 tab Q4HP PRN PO 10/21/24 11:15 10/22/24 20:32 1 TAB Ondansetron HCl 4 mg Q4HP PRN IV 10/21/24 11:15 Acetaminophen 650 mg Q6HP PRN PO 10/21/24 11:15 Morphine Sulfate 2 mg Q4HPRN PRN IV 10/21/24 11:15 10/22/24 06:16 2 MG Aspirin 81 mg DAILY PO 10/22/24 10:00 10/22/24 09:04 81 MG Docusate Sodium 100 mg DAILYPRN PRN PO 10/21/24 13:00 Laboratory Results Laboratory Tests 10/22/24 04:57 Chemistry Test 10/22/24 04:57 Albumin 3.7 g/dL (3.2-4.8) Calcium Level 9.1 mg/dL (8.7-10.4) Total Protein 5.9 g/dL (5.7-8.2) LFT Test 10/22/24 04:57 Alanine Aminotransferase (ALT) 22 U/L (7-40) Alkaline Phosphatase 93 U/L (46-116) Aspartate Amino Transferase (AST) 19 U/L (13-40) Total Bilirubin 0.5 mg/dL (0.2-1.0) Urinalysis Test 10/21/24 03:13 Urine Color Yellow (Yellow) Urine Clarity Clear (Clear) Urine pH 5.0 (5.0-9.0) Urine Specific [place] 1.024 (1.001-1.035) Urine Protein Trace (Negative) H Urine Ketones Negative (Negative) Urine Blood Negative /uL (Negative) Urine Nitrite Negative (Negative) Urine Bilirubin Negative (Negative) Urine Urobilinogen Normal mg/dL (Negative) Urine Leukocyte Esterase Trace /uL (Negative) Urine RBC 2 /hpf (0 - 4) Urine WBC 1 /hpf (0 - 5) Urine Squamous Epithelial Cells Few /hpf (<5) Urine Bacteria Few /hpf (None Seen) H Urine Hyaline Casts Many /lpf (0 - 2) Urine Glucose Normal mg/dL (Normal) Labs and/or images reviewed: Labs reviewed by me Assessment/Plan Assessment/Plan Intractable abdominal pain Leukocytosis likely 2nd to UTI BROOK on CKD 3 Chronic CVA GERD CHF Brain tumors,f/u outpatient Continuing current management. Continuing with Zofran p.r.n. for nausea and and vomiting. Continuing with IV antibiotic Rocephin. Appreciate Nephrology input. Continuing with [place] for pain control. I will give her one dose of dilaudid. This medical document was created using an electronic medical record system with [employer] computerized dictation system. Although this document has been carefully reviewed, there may still be some phonetic and typographical errors. These areas are purely typographical due to imperfections of the software programs, and do not reflect any compromise in the patient's medical care. Plan discussed with: Patient Date of Service: Oct 22, 2024 Billing Provider: RADU WOODARD MD Common Visit Codes: [id number] INP/OBS CARE(HIGH) RADU WOODARD MD Oct 22, 2024 22:20
[2024-10-23 05:00] VITALS: BP 131/83; PULSE 84; RESP 18; TEMP 98; O2SAT 93
[2024-10-23 08:30] VITALS: BP 166/83; PULSE 80; RESP 19; TEMP 98.4; O2SAT 94
[2024-10-23 11:32] LABS: Basophils # (auto) 0 10 ^3/uL (0-0.2); Basophils % (auto) 0.4 % (0.0-2.0); Eosinophils # (auto) 0.2 10 ^3/uL (0-0.8); Hematocrit 40.2 % (36.0-46.0); Hemoglobin 12.9 g/dL (12.2-16.2); Lymphocytes # (auto) 2.3 10 ^3/uL (0.4-5.4); Lymphocytes % (auto) 27.5 % (10.0-50.0); Mean Corpuscular Hemoglobin 27.5 pg (28.0-32.0); Mean Corpuscular Volume 85.8 fL (80.0-100.0); Monocytes # (auto) 0.5 10 ^3/uL (0-1.3); Monocytes % (auto) 5.5 % (0.0-12.0); Neutrophils # (auto) 5.5 10 ^3/uL (1.6-8.6); Neutrophils % (auto) 64.6 % (37.0-80.0); Nucleated Red Blood Cells % 0.1 %; Platelet Count (auto) 232 10^3/uL (140-450); Red Blood Cells 4.68 10^6/uL (4.0-5.20); Red Cell Distribution Width 15.5 % (11.8-14.3); White Blood Cell 8.5 10^3/uL (4.4-10.8)
[2024-10-23 11:38] LABS: Anion Gap 8 (5-15); Carbon Dioxide 26 mmol/L (20-31); Chloride 105 mmol/L (98-107); Potassium 4.1 mmol/L (3.5-5.1); Sodium 139 mmol/L (136-145)
[2024-10-23 11:39] LABS: Calcium 9.7 mg/dL (8.7-10.4)
--- NOTE | 2024-10-23 11:41 | DVHDS2 ---
Discharge Summary Date of Admission Oct 21, 2024 at 11:01 Date of Discharge: Oct 23, 2024 Admitting Diagnosis Intractable abdominal pain Leukocytosis likely 2nd to UTI BROOK on CKD 3 Chronic CVA GERD CHF Brain tumors,f/u outpatient Labs/Diagnostic Data: Laboratory Results Test 10/23/24 11:00 10/22/24 04:57 10/21/24 03:27 10/21/24 03:13 Eosinophils (%) (Auto) 2.1 % (0.0-7.0) Eosinophils # (Auto) 0.2 10 ^3/uL (0-0.8) Basophils # (Auto) 0 10 ^3/uL (0-0.2) Nucleated Red Blood Cells 0.0 % Total Bilirubin 0.5 mg/dL (0.2-1.0) Aspartate Amino Transferase (AST) 19 U/L (13-40) Alanine Aminotransferase (ALT) 22 U/L (7-40) Alkaline Phosphatase 93 U/L (46-116) Total Protein 5.9 g/dL (5.7-8.2) Albumin 3.7 g/dL (3.2-4.8) Phosphorus Level 5.8 mg/dL (2.4-5.1) Magnesium Level 2.4 mg/dL (1.6-2.6) B-Type Natriuretic Peptide 34.72 pg/mL (0-100) Lipase 53 U/L (12-53) Vitamin D 25-Hydroxy 34.8 ng/mL (30.0-100) Parathyroid Hormone (Intact) 107.7 pg/mL (18.4-80.1) Urine Color Yellow (Yellow) Urine Clarity Clear (Clear) Urine pH 5.0 (5.0-9.0) Urine Specific [place] 1.024 (1.001-1.035) Urine Protein Trace (Negative) Urine Ketones Negative (Negative) Urine Blood Negative /uL (Negative) Urine Nitrite Negative (Negative) Urine Bilirubin Negative (Negative) Urine Urobilinogen Normal mg/dL (Negative) Urine Leukocyte Esterase Trace /uL (Negative) Urine RBC 2 /hpf (0 - 4) Urine WBC 1 /hpf (0 - 5) Urine Squamous Epithelial Cells Few /hpf (<5) Urine Bacteria Few /hpf (None Seen) Urine Hyaline Casts Many /lpf (0 - 2) Urine Glucose Normal mg/dL (Normal) Brief Hx & Hospital Course: This is a 48 years old female with past medical history of congestive heart failure, CVA, bilateral weakness, gallstone, GERD, abdominal reconstruction surgery, brain tumor, came to emergency department because of severe abdominal pain for one month. Per patient is scale progressive worse for last couple day. She complained that pain is pressure-like and burning cramping. The patient said that she recently was at [place] and was diagnosis with gallstone but apparently surgery was delay. Patient had urge incontinence when voiding. Patient denied fever, chill. The patient was admitted. Workup was done. Ultrasound of gallbladder showed: The liver appears normal in echogenicity estimated 16.2 cm. Gallbladder appears unremarkable without evidence of pericholecystic fluid, wall thickening, or cholelithiasis. Common bile duct is obscured. The right kidney estimated at 9.6 cm in length and appears unremarkable. Obscured pancreas and intrahepatic IVC. The patient also treat for UTI with Rocephin 1 g IV q.day. The patient adamant requests Dilaudid. Patient said only Dilaudid work with her pain. The patient received two dose of Dilaudid. The patient was not in pain when got distracted. So today I am discharge the patient home. Advised the patient to follow up with primary care physician 1-2 weeks. Explained to the patient that her ultrasound is normal. But if she continuing to have pain in need to repeat ultrasound she can talk to her primary care physician and referred to surgeon if there is a need for gallbladder surgery. At this point the gallbladder per ultrasound showed no evidence of stone or cholecystitis. Physical exam: HEENT: Normocephalic atraumatic pupils equal react to light and accommodation. Extraocular muscles intact, conjunctiva pink, oropharynx moist, no thrush, no exudate. Lymphatic: No lymphadenopathy Cardiovascular exam: S1, S2 was heard. No murmurs, rubs, gallops Lung: Clear on auscultation bilaterally, no wheeze, rale, rhonchi. GI: Abdominal soft, nondistended, nontenderness, positive bowel sounds. Extremity: No crepitus, cyanosis, edema. Pedal pulses present bilateral. Full range of motion. Skin: Normal turgor, no rash. Psych: Alert, oriented x3. Neurology: No focal deficits, cranial nerve II to XII grossly intact. This medical document was created using an electronic medical record system with [employer] computerized dictation system. Although this document has been carefully reviewed, there may still be some phonetic and typographical errors. These areas are purely typographical due to imperfections of the software programs, and do not reflect any compromise in the patient's medical care. Condition at Discharge: Stable Final Diagnosis/Problems List Intractable abdominal pain Leukocytosis likely 2nd to UTI BROOK on CKD 3 Chronic CVA GERD CHF Brain tumors,f/u outpatient Discharge Disposition: Home Discharge Statement: "Patient was advised to return to the ER or call 911 if any headaches, dizziness, shortness of breath, chest pain, abdominal pain, bleeding, fevers, or worsening of medical condition. Patient was counseled about treatment plan, medications, possible side effects, patientverbalized understanding. All questions were answered to the best of my ability. This discharge took greater then 30 minutes in planning, reviewing documentation, counseling the patient, and discussing with other team members." ASSESSMENT ASSESSMENT Assessment Date of Service: Oct 23, 2024 Billing Provider: RADU WOODARD MD Common Visit Codes: 39300-RHP/OBS DISCH DAY >30min RADU WOODARD MD Oct 23, 2024 11:41
[2024-10-23 11:44] LABS: BUN/Creatinine Ratio 21.5 (10.0-20.0); Blood Urea Nitrogen 17 mg/dL (9-23); Glucose 109 mg/dL (74-106)
[2024-10-23] MEDS ORDERED: CEPH250C PO (11:51)
[2024-10-23 12:33] VITALS: BP 129/105; PULSE 81; RESP 18; TEMP 97.6; O2SAT 96
[2024-10-23 13:02] VITALS: BP 166/83; PULSE 80; RESP 19; TEMP 98.4; O2SAT 94
[2024-10-23] MEDS ORDERED: LEVO500T91 PO (14:51)
== END 2024-10-23 15:44 | disposition home or self-care (01) | DRG 689 ==
LOC: ER 02:45 → OVERFLOW 11:01 → WEST WING 17:44
PROVIDERS: ATTEND Internal Medicine
DX: N30.00 Acute cystitis without hematuria (principal); N17.0 Acute kidney failure with tubular necrosis; R65.11 Systemic inflammatory response syndrome (SIRS) of non-infectious origin with acute organ dysfunction; E87.1 Hypo-osmolality and hyponatremia; E86.0 Dehydration; E11.22 Type 2 diabetes mellitus with diabetic chronic kidney disease; I50.9 Heart failure, unspecified; D49.6 Neoplasm of unspecified behavior of brain; K21.9 Gastro-esophageal reflux disease without esophagitis; N39.41 Urge incontinence; D63.1 Anemia in chronic kidney disease; K80.20 Calculus of gallbladder without cholecystitis without obstruction; E66.01 Morbid (severe) obesity due to excess calories; N18.30 Chronic kidney disease, stage 3 unspecified; Z88.1 Allergy status to other antibiotic agents; Z79.899 Other long term (current) drug therapy; Z90.710 Acquired absence of both cervix and uterus; Z86.73 Personal history of transient ischemic attack (TIA), and cerebral infarction without residual deficits; Z82.3 Family history of stroke; Z88.5 Allergy status to narcotic agent
CPT/HCPCS: 36415; 71045; 74176; 76705; 80048; 80053; 81001; 82306; 83690; 83735; 83880; 83970; 84100; 85025; G0378; J1885; J2405

== ENCOUNTER 2025-09-18 22:18 | Inpatient (IN) | payer OTHER, BC, MEDICAID ==
[~2025-09-18] VITALS: Ht 160 cm; Wt 111.3 kg
[~2025-09-18 22:18] MED LIST: ATOR20TA50 PO; LEVO500T91 PO; LISI40TA16 PO; MET25T PO; PANT40T PO; POTA-228 PO
--- NOTE | 2025-09-18 23:23 | ED.PDOC ---
GI ASSESSMENT HPI Comments 49-year-old female with a past medical history of hypertension, hyperlipidemia, GERD, fibromyalgia, type 2 diabetes (not taking any medication, controlled by herself), 7 CVA events (no residual weakness) and severe COVID (3 years ago, was hospitalized for 5 and half months) has come to the ER with complaints of abdominal pain. Patient reports that 5 hours ago, she had sudden onset of acute epigastric pain, burning, throbbing and cramp like in nature, 10/10 in intensity which has been constant, with no aggravating or relieving factors and associated with nausea, 1 episode of diarrhea (she had to stay in the bathroom for over 2 hours). Patient denies any vomiting, recent travel history, chest pain, shortness of breath, food that might have caused it, GERD or urinary symptoms. Vitals on initial assessment were stable. Chief Complaint: Abdominal Pain Time Seen by MD: 23:06 Primary Care Provider: Dr. Brito Reviewed Notes: Medications, Allergies Allergies: Coded Allergies: Cephalexin (Verified Allergy, Intermediate, hives, 10/21/24) Home Meds Active Scripts Levofloxacin Hemihydrate (LEVAQUIN 500 MG) 500 Mg Tab, 1 TAB PO DAILY, #7 TAB Prov:RADU WOODARD MD 10/23/24 Reported Medications Pantoprazole Sodium Sesquihydr (Pantoprazole Sodium) 40 Mg Tab, 1 TAB PO DAILY 10/21/24 Lisinopril (Lisinopril) 40 Mg Tab, 1 TAB PO DAILY 10/21/24 Metoprolol Tartrate (Lopressor) 25 Mg Tb, 1 TAB PO BID 10/21/24 Potassium Chloride (Potassium Chloride ER) 10 Meq Tab, 1 TAB PO DAILY 10/21/24 Atorvastatin Calcium (ATORVASTATIN CALCIUM) 20 Mg Tab, 1 TAB PO DAILY 10/21/24 Information Source: Patient Mode of Arrival: Ambulatory Timing: Hours Duration: Hours Prehospital treatment: None Quality: Burning, Cramping, Other (Throbbing) Vomitus: None Stool: Loose Severity: Severe Recent: Laxative Use Recent Hx of: None Pain Location: Epigastric Modifying Factors: Nothing Associated sign and symptoms: Nausea, Diarrhea, Abdominal Pain Past Medical History PAST MEDICAL HISTORY: CHF, CVA, DM, Gallstones, GERD, TIA Past Medical History (Other): Fibromyalgia Surgical History: , Hysterectomy, Tonsillectomy Surgical History (Other): Cystocele, rectocele, prolapse vagina 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) Family History Family History: Reviewed,noncontributory to illness Social History Smoker: Non-Smoker Alcohol: Denies ETOH Use Drugs: Denies Drug Use Lives In: Home Constitutional: denies: chills, diaphoresis, fatigue, fever, malaise, sweats, weakness, others EENTM: denies: blurred vision, double vision, ear bleeding, ear discharge, ear drainage, ear pain, ear ringing, eye pain, eye redness, hearing loss, mouth pain, mouth swelling, nasal discharge, nose bleeding, nose congestion, nose pain, photophobia, tearing, throat pain, throat swelling, voice changes, others Respiratory: denies: cough, hemoptysis, orthopnea, SOB at rest, shortness of breath, SOB with excertion, stridor, wheezing, others Cardiovascular: denies: chest pain, dizzy spells, diaphoresis, Dyspnea on exertion, edema, irregular heart beat, left arm pain, lightheadedness, palpitations, PND, syncope, others Gastrointestinal: reports: abdominal pain, diarrhea, nausea; denies: abdomen distended, blood streaked bowels, constipated, dysphagia, difficulty swallowing, hematemesis, melena, poor appetite, poor fluid intake, rectal bleeding, rectal pain, vomiting, others Genitourinary: denies: abnormal vagina bleeding, burning, dyspareunia, dysuria, flank pain, frequency, hematuria, incontinence, pain, , vagina discharge, urgency, others Neurological: denies: dizziness, fainting, headache, left sided numbness, left sided weakness, numbness, paresthesia, pre-existing deficit, right sided numbness, right sided weakness, seizure, speech problems, tingling, tremors, weakness, others Musculoskeletal: reports: back pain; denies: gout, joint pain, joint swelling, muscle pain, muscle stiffness, neck pain, others Integumetry: denies: bruises, change in color, change in hair/nails, dryness, laceration, lesions, lumps, rash, wounds, others Hematologic/Lymphatic: denies: anemia, blood clots, easy bleeding, easy bruising, swollen glands, others Endocrine: denies: excessive hunger, excessive sweating, excessive thirst, excessive urination, flushing, intolerance to cold, intolerance to heat, unexplained weight gain, unexplained weight loss, others Psychiatric: denies: anxiety, bipolar disorder, depression, hopeless, panic disorder, schizophrenia, sleepless, suicidal, others Physical Exam General Appearance: Severe Distress HEENT: None Neck: Normal Respiratory: Normal Breath Sounds Cardiovascular: None Breast Exam: Deferred Gastrointestinal: Epigastric, Tenderness Genitalia: Deferred Pelvic: Deferred Rectal: Deferred Extremities: Normal inspection, Normal range of motion Neurologic: None Cerebellar Function: Normal Reflexes: Normal Skin: Normal Color Lymphatic: None Was a procedure done? Was a procedure done?: No GI differential Dx Differential Diagnosis: Gastritis/PUD, Gastroenteritis X-Ray, Labs, Meds, VS Vital Signs Date Time Temp Pulse Resp B/P (MAP) Pulse Ox O2 Delivery O2 Flow Rate FiO2 09/18/25 22:33 98.7 71 20 119/60 98 98.7 Lab Test 09/18/25 23:22 Range/Units White Blood Count 14.7 H 4.4-10.8 10^3/uL Red Blood Count 4.68 4.0-5.20 10^6/uL Hemoglobin 12.3 12.2-16.2 g/dL Hematocrit 39.1 36.0-46.0 % Mean Corpuscular Volume 83.4 80.0-100.0 fL Mean Corpuscular Hemoglobin 26.2 L 28.0-32.0 pg Mean Corpuscular Hemoglobin Concent 31.5 L 32.0-36.0 g/dL Red Cell Distribution Width 14.7 H 11.8-14.3 % Platelet Count 354 140-450 10^3/uL Mean Platelet Volume 8.8 6.9-10.8 fL Neutrophils (%) (Auto) 66.9 37.0-80.0 % Lymphocytes (%) (Auto) 21.9 10.0-50.0 % Monocytes (%) (Auto) 9.7 0.0-12.0 % Eosinophils (%) (Auto) 0.8 0.0-7.0 % Basophils (%) (Auto) 0.7 0.0-2.0 % Neutrophils # (Auto) 9.8 H 1.6-8.6 10 ^3/uL Lymphocytes # (Auto) 3.2 0.4-5.4 10 ^3/uL Monocytes # (Auto) 1.4 H 0-1.3 10 ^3/uL Eosinophils # (Auto) 0.1 0-0.8 10 ^3/uL Basophils # (Auto) 0.1 0-0.2 10 ^3/uL Nucleated Red Blood Cells 0.0 % Sodium Level 138 136-145 mmol/L Potassium Level 4.0 3.5-5.1 mmol/L Chloride Level 104 98-107 mmol/L Carbon Dioxide Level 22 20-31 mmol/L Anion Gap 12 5-15 Blood Urea Nitrogen 57 H 9-23 mg/dL Creatinine 2.34 H 0.550-1.02 mg/dL Glomerular Filtration Rate Calc 25 >90 mL/min BUN/Creatinine Ratio 24.4 H 10.0-20.0 Serum Glucose 141 H 74-106 mg/dL Calcium Level 9.3 8.7-10.4 mg/dL Total Bilirubin 0.4 0.2-1.0 mg/dL Aspartate Amino Transferase (AST) 42 H 13-40 U/L Alanine Aminotransferase (ALT) 35 7-40 U/L Alkaline Phosphatase 112 46-116 U/L Total Protein 7.7 5.7-8.2 g/dL Albumin 4.6 3.2-4.8 g/dL Lipase 71 H 12-53 U/L Beta HCG, Quantitative 5.0 H 1.5-4.2 mIU/mL Current Medications Medications (Trade) Dose Ordered Sig/Zoila Route Start Time Stop Time Status Last Admin Ketorolac Tromethamine (Toradol Injection) 30 mg ONCE ONCE IV 09/18/25 23:15 09/18/25 23:16 DC 09/19/25 00:14 Pantoprazole Sodium (Protonix) 40 mg ONCE ONCE IV 09/18/25 23:15 09/18/25 23:16 DC 09/19/25 00:13 Levofloxacin/ Dextrose 100 ml @ 100 mls/hr ONCE ONCE IV 09/19/25 00:30 09/19/25 01:29 DC 09/19/25 00:51 Metronidazole 100 ml @ 100 mls/hr ONCE ONCE IV 09/19/25 00:30 09/19/25 01:29 DC 09/19/25 00:51 Images Reviewed?: Images reviewed and evaluated by me Time of 1ST Reevaluation: 00:20 Reevaluation 1ST: Unchanged Time of 2ND Reevaluation: 01:00 Reevaluation 2ND: Unchanged Patient Education/Counseling: Diagnosis, Treatment Family Education/Counseling: No Family Present SEPSIS Sepsis Screen Date sepsis recognized/suspect: Sep 18, 2025 Time Sepsis recognized/suspect: 2226 Recent Procedure: No On Antibiotic Therapy: No Respiratory Rate >20: No Heart Rate >90: No Temp<36 C (96.8 F) or >38.3 C: No SBP <90 or MAP <65 mmHG: No New Acute Mental Status Change: No Is the patient on CPAP, BIPAP,: No Physician Orders Urinalysis (09/18/25 23:07) Ct Ab Pel Wo Con-No Oral Or Iv (09/18/25 23:07) Vital Signs Date Time Temp Pulse Resp B/P (MAP) Pulse Ox O2 Delivery O2 Flow Rate FiO2 09/18/25 22:33 98.7 71 20 119/60 98 98.7 Laboratory Tests Test 09/18/25 23:22 White Blood Count 14.7 10^3/uL (4.4-10.8) H Departure 1 Departure Time of Disposition: 01:25 Impression: Primary Impression: Gastroenteritis Disposition: ADMITTED INPATIENT Admit to: Med Surg Condition: Unstable Comments Attestation: I personally saw and evaluated the patient. I agree with the findings and plan of care as documented by the resident note. JUSTEN MARQUEZ MD Critical Care Note Critical Care Time?: No Stability Stability form required: No Heart Score Heart Score: Heart Score Response (Comments) Value History N/A 0 EKG N/A 0 Age N/A 0 Risk Factors N/A 0 Troponin N/A 0 Total 0 ROSALINA LIND RESIDENT Sep 18, 2025 23:23 JUSTEN MARQUEZ MD Sep 19, 2025 22:35
[2025-09-18 23:35] LABS: Hematocrit 39.1 % (36.0-46.0); Hemoglobin 12.3 g/dL (12.2-16.2); Mean Corpuscular Hemoglobin 26.2 pg (28.0-32.0); Mean Corpuscular Volume 83.4 fL (80.0-100.0); Nucleated Red Blood Cells % 0.0 %
[2025-09-18 23:52] LABS: Alanine Aminotransferase 35 U/L (7-40); Albumin 4.6 g/dL (3.2-4.8); Alkaline Phosphatase 112 U/L (46-116); Anion Gap 12 (5-15); BUN/Creatinine Ratio 24.4 (10.0-20.0); Bilirubin, Total 0.4 mg/dL (0.2-1.0); Calcium 9.3 mg/dL (8.7-10.4); Carbon Dioxide 22 mmol/L (20-31); Chloride 104 mmol/L (98-107); Potassium 4.0 mmol/L (3.5-5.1); Sodium 138 mmol/L (136-145); Total Protein 7.7 g/dL (5.7-8.2)
[2025-09-18 23:58] LABS: Blood Urea Nitrogen 57 mg/dL (9-23); Glucose 141 mg/dL (74-106); Lipase 71 U/L (12-53)
[2025-09-19] MEDS: PANTOPRAZOLE 40 MG/10 ML VIAL INJ IV ONE ×2 (00:13→14:09)
[2025-09-19] MEDS: KETOROLAC TROMETH 30 MG/ML 1ML VIAL IV ONE (00:14)
--- NOTE | 2025-09-19 01:46 | DVH ---
Exam: CT CT AB PEL WO CON-NO ORAL OR IV History: severe abdominal pain Comparison Study: CT CT AB PEL WO CON-NO ORAL OR IV on DOS: 10/21/24 Technique: Multidetector spiral CT of the abdomen was performed from lung bases to pubic symphysis. Imaging was performed without IV contrast. Axial, coronal and sagittal multiplanar reformats were obtained from the axial data set by the technologist. Radiation Dose : 1. Abdomen/Pelvis: CTDIvol 26.1 mGy, DLP 1527.13 mGy*cm. Findings: Evaluation of solid organs is limited due to lack of intravenous contrast use. Lower Chest: No acute findings. Mitral annular calcification. Liver: Diffuse hypoattenuation. Gallbladder and Biliary Tree: Unremarkable Pancreas: Moderate atrophy. Spleen: Unremarkable. Adrenal Glands: Unremarkable. Kidneys/Ureters: No urinary stone or obstruction. Bladder: Grossly unremarkable for degree of distention. Pelvic Organs: Absent uterus. Bowel: Normal caliber without wall thickening. Normal appendix. Vasculature: Unremarkable. Lymphadenopathy: No obvious adenopathy. Peritoneum: No ascites, free air, or fluid collection. Abdominal Wall: No significant hernia. Musculoskeletal: No acute findings. Degenerative change of the spine and pelvis. IMPRESSION: 1. No acute abdominopelvic abnormality, evidence of urinary stone or obstruction. Radiation optimization: All CT scans at this facility use at least one of these dose optimization techniques: automated exposure control mA and/or kV adjustment per patient size (includes targeted exams where dose is matched to clinical indication) or iterative reconstruction.
--- NOTE | 2025-09-19 02:00 | DVHHPRES ---
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 The patient reports the pain as sudden onset, 8/10 currently, radiates to the groin and back associated with nonbloody greenish vomiting. She feels feverish, however she did not measure temperature at home. She also reports having frequent diarrhea. She denies any sick contacts or travel history or recent antibiotic use. She denies any chest pain, shortness of breaths, urinary symptoms or any other complaints. Past medical and surgical history: As above Allergies: Keflex, Farxiga Home medications: Atorvastatin, levofloxacin, lisinopril, metoprolol, p antoprazole Smoking: Denies Drugs: Vapes marijuana regularly since last couple of years. Alcohol: Occasional PCP: Code status: Review of Systems Allergies: Coded Allergies: Cephalexin (Verified Allergy, Intermediate, hives, 10/21/24) Exam Vital Signs Vital Signs Date Time Temp Pulse Resp B/P (MAP) Pulse Ox O2 Delivery O2 Flow Rate FiO2 09/18/25 22:33 98.7 71 20 119/60 98 98.7 Exam Pt is lying on bed General Appearance: Alert, Oriented X3, Cooperative, Mild distress HEENT: Atraumatic, Mucous membranes moist/pink Respiratory: Clear to auscultation, Normal air movement, No added sounds Cardiovascular: Regular rate, Normal S1, Normal S2, No murmurs Abdominal/ : Active bowel sounds, Soft, no distention, periumbilical tenderness Extremities: No edema, Normal pulses, No tenderness/swelling Skin: No Significant rash, except past surgical scars Neuro: Normal speech, sensorimotor deficits none Psych/Mental Status: Mental status NL, Mood NL Nurse was there as manufacturing engineer chief during examination Labs/Xrays Labs Test 09/18/25 23:22 Range/Units White Blood Count 14.7 H 4.4-10.8 10^3/uL Red Blood Count 4.68 4.0-5.20 10^6/uL Hemoglobin 12.3 12.2-16.2 g/dL Hematocrit 39.1 36.0-46.0 % Mean Corpuscular Volume 83.4 80.0-100.0 fL Mean Corpuscular Hemoglobin 26.2 L 28.0-32.0 pg Mean Corpuscular Hemoglobin Concent 31.5 L 32.0-36.0 g/dL Red Cell Distribution Width 14.7 H 11.8-14.3 % Platelet Count 354 140-450 10^3/uL Mean Platelet Volume 8.8 6.9-10.8 fL Neutrophils (%) (Auto) 66.9 37.0-80.0 % Lymphocytes (%) (Auto) 21.9 10.0-50.0 % Monocytes (%) (Auto) 9.7 0.0-12.0 % Eosinophils (%) (Auto) 0.8 0.0-7.0 % Basophils (%) (Auto) 0.7 0.0-2.0 % Neutrophils # (Auto) 9.8 H 1.6-8.6 10 ^3/uL Lymphocytes # (Auto) 3.2 0.4-5.4 10 ^3/uL Monocytes # (Auto) 1.4 H 0-1.3 10 ^3/uL Eosinophils # (Auto) 0.1 0-0.8 10 ^3/uL Basophils # (Auto) 0.1 0-0.2 10 ^3/uL Nucleated Red Blood Cells 0.0 % Sodium Level 138 136-145 mmol/L Potassium Level 4.0 3.5-5.1 mmol/L Chloride Level 104 98-107 mmol/L Carbon Dioxide Level 22 20-31 mmol/L Anion Gap 12 5-15 Blood Urea Nitrogen 57 H 9-23 mg/dL Creatinine 2.34 H 0.550-1.02 mg/dL Glomerular Filtration Rate Calc 25 >90 mL/min BUN/Creatinine Ratio 24.4 H 10.0-20.0 Serum Glucose 141 H 74-106 mg/dL Calcium Level 9.3 8.7-10.4 mg/dL Total Bilirubin 0.4 0.2-1.0 mg/dL Aspartate Amino Transferase (AST) 42 H 13-40 U/L Alanine Aminotransferase (ALT) 35 7-40 U/L Alkaline Phosphatase 112 46-116 U/L Total Protein 7.7 5.7-8.2 g/dL Albumin 4.6 3.2-4.8 g/dL Lipase 71 H 12-53 U/L Beta HCG, Quantitative 5.0 H 1.5-4.2 mIU/mL SEPSIS Sepsis Screen Date sepsis recognized/suspect: Sep 18, 2025 Time Sepsis recognized/suspect: 2226 Recent Procedure: No On Antibiotic Therapy: No Respiratory Rate >20: No Heart Rate >90: No Temp<36 C (96.8 F) or >38.3 C: No SBP <90 or MAP <65 mmHG: No New Acute Mental Status Change: No Is the patient on CPAP, BIPAP,: No Physician Orders Urinalysis (09/18/25 23:07) Ct Ab Pel Wo Con-No Oral Or Iv (09/18/25 23:07) Admit (09/19/25 01:55) Complete Blood Count (09/19/25 04:00) Comprehensive Metabolic Panel (09/19/25 04:00) Notify Of Changes From Base (09/19/25 01:55) Vital Signs Date Time Temp Pulse Resp B/P (MAP) Pulse Ox O2 Delivery O2 Flow Rate FiO2 09/18/25 22:33 98.7 71 20 119/60 98 98.7 Laboratory Tests Test 09/18/25 23:22 White Blood Count 14.7 10^3/uL (4.4-10.8) H Medications Medications Dose Ordered Sig/Zoila Route Start Time Stop Time Status Last Admin Dose Admin Ketorolac Tromethamine 30 mg ONCE ONCE IV 09/18/25 23:15 09/18/25 23:16 DC 09/19/25 00:14 30 MG Levofloxacin/ Dextrose 100 ml @ 100 mls/hr ONCE ONCE IV 09/19/25 00:30 09/19/25 01:29 DC 09/19/25 00:51 100 MLS/HR Metronidazole 100 ml @ 100 mls/hr ONCE ONCE IV 09/19/25 00:30 09/19/25 01:29 DC 09/19/25 00:51 100 MLS/HR Pantoprazole Sodium 40 mg ONCE ONCE IV 09/18/25 23:15 09/18/25 23:16 DC 09/19/25 00:13 40 MG Assessment/Plan Assessment/Plan Acute gastroenteritis -NPO, advance as tolerated. -IV fluid -IV Levaquin and IV metronidazole (patient has Keflex allergy) -IV ondansetron (check EKG) -Tylenol as needed BROOK likely due to VMN IV fluid Avoid nephrotoxic drugs Discontinued lisinopril Dyslipidemia Continue atorvastatin calcium 20 mg Hypertensive heart disease Diastolic heart failure with preserved ejection EKG ordered, please follow up Lisinopril 40 mg tablet held due to impaired kidney function Current blood pressure 119/60, monitor Metoprolol tartrate 25 mg tablet Patient has allergies to Farxiga GI prophylaxis: Pantoprazole DVT prophylaxis: Sequential compression device (patient has BROOK) Diet: NPO as per medications, advanced as tolerated Goals of care discussed with the patient for more than 27 minutes: Full code status Case discussed with , patient and RN Plan discussed with: Patient, Other (RN) My Orders Orders - FRANCIA CARPENTER Procedure Category Date Status Time Admit ADMIT 09/19/25 Transmitted 01:55 Complete Blood Count LAB 09/19/25 Transmitted 04:00 Comprehensive LAB 09/19/25 Transmitted Metabolic Panel 04:00 Notify Of Changes MARKO 09/19/25 In Process From Base 01:55 Date of Service: Sep 19, 2025 Billing Provider: RAFA MERCEDES MD Common Visit Codes: 47114-KPLETHS INP/OBS CARE (HIGH) Secondary Visit Codes: 68268-[id number] CARE PLAN 30 MINUTES FRANCIA CARPENTER Sep 19, 2025 02:00
[2025-09-19 03:16] VITALS: PULSE 61; RESP 18; O2SAT 95
[2025-09-19] MEDS: SODIUM CHLORIDE 0.9% 1,000 ML IV ONE (03:58)
[2025-09-19 05:00] VITALS: BP 126/59; PULSE 72; RESP 16; TEMP 97.6; O2SAT 94
[2025-09-19 07:22] LABS: Hematocrit 37.1 % (36.0-46.0); Hemoglobin 11.8 g/dL (12.2-16.2); Mean Corpuscular Hemoglobin 26.8 pg (28.0-32.0); Mean Corpuscular Volume 84.0 fL (80.0-100.0); Nucleated Red Blood Cells % 0.0 %
[2025-09-19 07:41] LABS: Alanine Aminotransferase 32 U/L (7-40); Albumin 4.0 g/dL (3.2-4.8); Alkaline Phosphatase 108 U/L (46-116); Anion Gap 13 (5-15); BUN/Creatinine Ratio 31.5 (10.0-20.0); Bilirubin, Total 0.3 mg/dL (0.2-1.0); Blood Urea Nitrogen 64 mg/dL (9-23); Calcium 8.8 mg/dL (8.7-10.4); Carbon Dioxide 19 mmol/L (20-31); Chloride 107 mmol/L (98-107); Glucose 165 mg/dL (74-106); Potassium 3.7 mmol/L (3.5-5.1); Sodium 139 mmol/L (136-145); Total Protein 6.9 g/dL (5.7-8.2)
--- NOTE | 2025-09-19 08:23 | DVH ---
INDICATION: Abdominal pain, BROOK TECHNIQUE: Multiple real-time sonographic images of the abdomen were obtained. COMPARISON: US GALLBLADDER on DOS: 10/21/24 FINDINGS: The liver is homogenous in echogenicity. The liver measures 16.2 cm. No intrahepatic biliary ductal dilatation is noted. The gallbladder wall measures 0.3 cm and is unremarkable. The gallbladder is contracted. The common duct is not visualized. No pericholecystic fluid is noted. Negative sonographic Ramos's sign. The right kidney measures 11.3 cm. No hydronephrosis. The left kidney measures 10.8 cm. No hydronephrosis. The spleen measures 8.0 cm, within normal limits. The echogenicity is within normal limits. The pancreas is not well visualized due to obscuration from bowel gas. The visualized portions of the IVC and aorta are grossly unremarkable. IMPRESSION: 1. Contracted gallbladder. 2. Common bile duct is not visualized.
[2025-09-19 09:00] VITALS: BP 121/62; PULSE 63; RESP 18; TEMP 97.6; O2SAT 97
[2025-09-19] MEDS: METOPROLOL TARTRATE 25 MG TAB PO SCH (09:42)
[2025-09-19 12:15] LABS: Potassium 4.4 mmol/L (3.5-5.1); Sodium 140 mmol/L (136-145)
[2025-09-19 12:16] LABS: Anion Gap 11 (5-15); Calcium 8.8 mg/dL (8.7-10.4); Carbon Dioxide 22 mmol/L (20-31); Chloride 107 mmol/L (98-107)
[2025-09-19 12:21] LABS: BUN/Creatinine Ratio 43.0 (10.0-20.0); Glucose 100 mg/dL (74-106)
[2025-09-19 12:22] LABS: Magnesium 2.6 mg/dL (1.6-2.6)
[2025-09-19 12:25] LABS: Blood Urea Nitrogen 71 mg/dL (9-23)
[2025-09-19 13:00] VITALS: BP 109/62; PULSE 54; RESP 16; TEMP 98; O2SAT 95
--- NOTE | 2025-09-19 13:18 | DVHINCON2 ---
Date Seen: Sep 19, 2025 Referring Physician MD Aureliano resident Reason for Consultation Abnormal EKG History of Present Illness This is a 49-year-old female patient who presents to emergency room with chief complaint of abdominal pain, nausea, and vomiting for one day prior to emergency room arrival. The patient reports that she has been having ongoing abdominal pain for several months but the pain became so severe yesterday, which prompted her to come to the emergency room. Cardiology has been consulted at this time for abnormal EKG. The twelve lead electrocardiogram revealed sinus bradycardia with early repolarization pattern. Initial troponin level of 10ng/L with repeat at 11ng/L. Significant past medical history includes congestive heart failure, myocardial infarction (denies any stent placement), hypertension, dyslipidemia, insulin-dependent type 2 diabetes mellitus, CVA x7 with residual left-sided deficit, chronic kidney disease, long-haul COVID, history of polysubstance use and morbid obesity. The patient reports that she follows up with avp in the outpatient setting. She also reports undergoing multiple coronary angiograms in the past with the last one was being approximately three years ago with no catheter based intervention. Past Medical History Past medical history reviewed. No other significant than mentioned above. Past Surgical History Total hysterectomy Cystocele and rectocele repair Tonsillectomy Hiatal hernia Family History: Cerebrovascular accident (CVA) G8 MOTHER G8 FATHER Degenerative joint disease G8 MOTHER FH: cancer G8 MOTHER G8 FATHER FH: heart disease Stroke Family History Family history reviewed. Social History Patient admits to previous polysubstance abuse, states she has not used any drugs in the last four years Denies tobacco use Patient states that she used to suffer from alcoholism, but quit four years ago Allergies: Coded Allergies: Cephalexin (Verified Allergy, Intermediate, hives, 10/21/24) Home Meds Active Scripts Levofloxacin Hemihydrate (LEVAQUIN 500 MG) 500 Mg Tab, 1 TAB PO DAILY, #7 TAB Prov:RADU WOODARD MD 10/23/24 Reported Medications Pantoprazole Sodium Sesquihydr (Pantoprazole Sodium) 40 Mg Tab, 1 TAB PO DAILY 10/21/24 Lisinopril (Lisinopril) 40 Mg Tab, 1 TAB PO DAILY 10/21/24 Metoprolol Tartrate (Lopressor) 25 Mg Tb, 1 TAB PO BID 10/21/24 Potassium Chloride (Potassium Chloride ER) 10 Meq Tab, 1 TAB PO DAILY 10/21/24 Atorvastatin Calcium (ATORVASTATIN CALCIUM) 20 Mg Tab, 1 TAB PO DAILY 10/21/24 Home Meds Home medications reviewed. Current Medications Current Medications Medications (Trade) Dose Ordered Sig/Zoila Route PRN Reason Start Time Stop Time Status Last Admin Ceftriaxone Sodium 50 ml @ 100 mls/hr DAILY@09 IV 09/19/25 09:00 09/19/25 02:24 DC Metronidazole 100 ml @ 100 mls/hr Q8HR IV 09/19/25 06:00 09/19/25 05:58 Levofloxacin/ Dextrose 100 ml @ 100 mls/hr Q24H IV 09/20/25 01:00 Acetaminophen (Tylenol Tablet) 650 mg Q4HP PRN PO MODERATE PAIN (4-6 PAIN SCALE) 09/19/25 06:00 Metoprolol Tartrate (Lopressor Tablet) 25 mg BID PO 09/19/25 10:00 09/19/25 09:42 Atorvastatin Calcium (Lipitor) 20 mg HS PO 09/19/25 22:00 Pantoprazole Sodium (Protonix) 40 mg BID IV 09/19/25 22:00 Review of Systems Constitutional: No symptom reported Ears, Nose, & Throat: No symptom reported Eyes: No symptom reported Neurological: No symptoms reported Pulmonary/Respiratory: No symptoms reported Cardiovascular: No symptom reported Gastrointestinal: Abdominal pain, nausea, and vomiting Genitourinary: No symptom reported Musculoskeletal: No symptom reported Skin: No symptom reported Psychiatric: No symptom reported Endocrine: No symptom reported Hematologic/Lymphatic: No symptom reported Vital Signs Vital Signs Date Time Temp Pulse Resp B/P (MAP) Pulse Ox O2 Delivery O2 Flow Rate FiO2 09/19/25 09:42 63 121/62 09/19/25 09:00 97.6 18 97 97.6 09/19/25 03:16 Room Air* 0 21 Physical Exam General Appearance: Cooperative. Morbidly obese Pulmonary/Respiratory: Clear, bilateral breaths sounds. Cardiovascular/Chest: Regular rate and rhythm. Peripheral Pulses: 2+ Radial (R). 2+ Radial (L). 2+ Pedal (R). 2+ Pedal (L) Abdominal Exam: Normal bowel sounds. Ankle Exam: Negative ankle edema Lower extremities: Negative lower extremity edema Neuro/Mental Status: A/OX4, coherent. Thoughts/Psych: Normal thought pattern. Appropriate mood and affect. Good judgment and insight. Appearance: No acute distress. Skin Exam: Normal inspection. Normal color. Warm and dry. Labs/Diagnostic Data Labs Test 09/19/25 11:54 09/19/25 06:58 09/18/25 23:22 Range/Units Sodium Level 140 136-145 mmol/L Potassium Level 4.4 3.5-5.1 mmol/L Chloride Level 107 98-107 mmol/L Carbon Dioxide Level 22 20-31 mmol/L Anion Gap 11 5-15 Blood Urea Nitrogen 71 H 9-23 mg/dL Creatinine 1.65 H 0.550-1.02 mg/dL Glomerular Filtration Rate Calc 38 >90 mL/min BUN/Creatinine Ratio 43.0 H 10.0-20.0 Serum Glucose 100 74-106 mg/dL Calcium Level 8.8 8.7-10.4 mg/dL Magnesium Level 2.6 1.6-2.6 mg/dL Troponin I High Sensitivity 11 </=34 ng/L White Blood Count 10.8 # 4.4-10.8 10^3/uL Red Blood Count 4.42 4.0-5.20 10^6/uL Hemoglobin 11.8 L 12.2-16.2 g/dL Hematocrit 37.1 36.0-46.0 % Mean Corpuscular Volume 84.0 80.0-100.0 fL Mean Corpuscular Hemoglobin 26.8 L 28.0-32.0 pg Mean Corpuscular Hemoglobin Concent 31.9 L 32.0-36.0 g/dL Red Cell Distribution Width 14.7 H 11.8-14.3 % Platelet Count 283 140-450 10^3/uL Mean Platelet Volume 8.9 6.9-10.8 fL Neutrophils (%) (Auto) 65.5 37.0-80.0 % Lymphocytes (%) (Auto) 20.9 10.0-50.0 % Monocytes (%) (Auto) 11.7 0.0-12.0 % Eosinophils (%) (Auto) 1.2 0.0-7.0 % Basophils (%) (Auto) 0.7 0.0-2.0 % Neutrophils # (Auto) 7.0 1.6-8.6 10 ^3/uL Lymphocytes # (Auto) 2.2 0.4-5.4 10 ^3/uL Monocytes # (Auto) 1.3 0-1.3 10 ^3/uL Eosinophils # (Auto) 0.1 0-0.8 10 ^3/uL Basophils # (Auto) 0.1 0-0.2 10 ^3/uL Nucleated Red Blood Cells 0.0 % Total Bilirubin 0.3 0.2-1.0 mg/dL Aspartate Amino Transferase (AST) 35 13-40 U/L Alanine Aminotransferase (ALT) 32 7-40 U/L Alkaline Phosphatase 108 46-116 U/L B-Type Natriuretic Peptide 33.02 0-100 pg/mL Total Protein 6.9 5.7-8.2 g/dL Albumin 4.0 3.2-4.8 g/dL Lipase 71 H 12-53 U/L Beta HCG, Quantitative 5.0 H 1.5-4.2 mIU/mL Assessment Rule out structural heart disease Hypertension Dyslipidemia History myocardial infarction without stent placement CVA x7 with left-sided residual weakness Insulin-dependent type 2 diabetes mellitus Chronic kidney disease Fibromyalgia History of polysubstance use Morbidly obese Plan/Recommendation We will continue with the following plan/recommendations (Dr. Montiel): Case discussed with . personally reviewed twelve lead electroc ardiograms. We will proceed with obtaining a transthoracic echocardiogram to evaluate cardiac function. Troponin level x 2 has been negative at this point. The patient denies any cardiac symptoms at time of assessment including chest pain, shortness of breath, palpitations, or dizziness. Patient visibly upset and tearful during assessment given recent family issues that were received via phone call. At this time, we will proceed with obtaining a transthoracic echocardiogram to assess wall motion and obtain further laboratory values. Plan was discussed with the patient in full detail who is agreeable to stay and undergo workup. Continue with close cardiac surveillance and notify cardiology team immediately for any ECG changes. Further recommendations per clinical course and progression. Thank you for allowing us to care for this patient. Please call with any questions or concerns. Critical care time spent: 44 minutes This medical document was created using an electronic medical record system with voice recognition software and computerized dictation system. Although this document has been carefully reviewed, there might still be some phonetic and typographical errors. Occasional wrong-word or ``sound-alike substitutions may have occurred due to the inherent limitations of voice recognition software. These areas are purely typographical due to imperfections of the software programs and do not reflect any compromise in the patient's medical care. Please read the chart carefully and recognize, using context, where these substitutions have occurred. Plan discussed with: Patient NYHA Physical activity limitations: NA Date of Service: Sep 19, 2025 Billing Provider: BLANCA BALDERAS Cardiology Common Codes: 54827-[id number] INP/OBS CARE (High) Cardiology Consultation Codes: 37419-[id number] CONSULT <45MIN BLANCA BALDERAS Sep 19, 2025 13:18
[2025-09-19] MEDS: ATORVASTATIN 20 MG TAB PO ONE (14:09)
[2025-09-19 14:19] LABS: Triglycerides 98.0 mg/dL (< 150)
[2025-09-19 14:21] LABS: Cholesterol 133.0 mg/dL (< 200); HDL Cholesterol 44.0 mg/dL (40-59)
[2025-09-19 17:12] VITALS: BP 116/48; PULSE 80; RESP 16; TEMP 97.9; O2SAT 93
--- NOTE | 2025-09-19 18:27 | DVHSR ---
APPROVED REPORT EXAM: Two-dimensional and M-mode echocardiogram with Doppler and color Doppler. Blood Pressure: 109/62 mmHg INDICATION Chest Pain RISK FACTORS Obesity: Height: 5'2, Weight: 250 DIMENSIONS LVDd 4.3 (3.8-5.7cm) LA (2D) 5.1 (1.9-4.0cm) Aortic Root 3.0 (2.0-3.7cm) LVDs 2.6 (2.5-4.0cm) LA (MM) (1.9-4.0cm) Aortic Cusp Exc 2.0 (1.5-2.0cm) EF (%) 65.0 (55-70%) Rt. Atrium 4.5 (1.9-4.0cm) Asc. Aorta cm IVSd 1.6 (0.7-1.1cm) RV (D) 5.5 (1.8-2.4cm) PWd 1.2 (0.7-1.1cm) Mitral Valve Mitral Mitral Stenosis E wave 1.08m/s MV Mean GR. 3mmHg A wave 1.28m/s MV Peak GR. 100mmHg E/A ratio 0.8 2D MVA cm2 DECEL Time 383ms PRESS 1/2 Time ms Aortic Valve Aortic Valve Aortic Stenosis V1 m/s AO Mean GR. 10mmHg V2 2.02m/s AO Peak GR. 16mmHg LVOT Diameter 2.2 (1.8-2.4cm) Doppler LYNN cm2 Pulmonic Valve V2 1.21m/s Tricuspid Valve TR Velocity 2.58m/s RVSP 37mmHg Other Information Quality : Technically Limited Rhythm : Technically limited study due to pt sleeping uncooperative when attempting to hold valsalva Conclusion Sinus rhythm. Concentric LVH with left atrial enlargement. Moderate mitral annular calcification and thickening at the midportion of the posterior mitral leaflet. There is thickening and echogenicity at this level as it adnexa is to the papillary muscle. The anterior mitral leaflet in the aortic valve are normal. Tricuspid and pulmonic normal. Left ventricular systolic function is preserved at 65% with normal RV function. Dopplers unremarkable. No pericardial effusion masses or vegetations.
[2025-09-19] MEDS: ACETAMINOPHEN 325 MG TAB PO PRN (19:44)
[2025-09-19] MEDS: ENOXAPARIN SOD 40 MG/0.4 ML SYRINGE SC ONE (19:46)
--- NOTE | 2025-09-19 19:49 | DVHPNRES ---
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 The patient reports the pain as sudden onset, 8/10 currently, radiates to the groin and back associated with nonbloody greenish vomiting. She feels feverish, however she did not measure temperature at home. She also reports having frequent diarrhea. She denies any sick contacts or travel history or recent antibiotic use. She denies any chest pain, shortness of breaths, urinary symptoms or any other complaints. Patient does state she has mild chest pain which comes and goes. Patient is a very poor historian and states she has periumbilical pain and right upper quadrant pain, hot flashes, is very tired and weak. Patient also states she has numbness and states that at home she was in the bathroom for 2 hours having diarrhea. past surgical history: Angiogram, bilateral tubal ligation Allergies: Keflex, Farxiga Home medications: Atorvastatin, levofloxacin, lisinopril, metoprolol, pantoprazole social history: Denies smoking, ex alcohol use, smokes marijuana occasionally. : Patient seen at bedside. Patient to the complains of periumbilical pain which is 5/10 in intensity radiating to the back, right upper quadrant pain. Patient also had bilateral leg pain on palpation. Patient states she has nausea. Objective vital signs Vital Sign Date Time Temp Pulse Resp B/P (MAP) Pulse Ox O2 Delivery O2 Flow Rate FiO2 09/19/25 17:12 97.9 80 16 116/48 (70) 93 97.9 09/19/25 03:16 Room Air* 0 21 Total Intake and Output 09/18/25 09/18/25 09/19/25 15:00 23:00 07:00 Intake Total 100 ml Balance 100 ml medications Current Medications Medications Dose Ordered Sig/Zoila Route Start Time Stop Time Status Last Admin Dose Admin Metronidazole 100 ml @ 100 mls/hr Q8HR IV 09/19/25 06:00 09/19/25 14:08 100 MLS/HR Levofloxacin/ Dextrose 100 ml @ 100 mls/hr Q24H IV 09/20/25 01:00 Acetaminophen 650 mg Q4HP PRN PO 09/19/25 06:00 Metoprolol Tartrate 25 mg BID PO 09/19/25 10:00 09/19/25 09:42 25 MG Atorvastatin Calcium 20 mg HS PO 09/19/25 22:00 Pantoprazole Sodium 40 mg BID IV 09/19/25 22:00 Enoxaparin Sodium 40 mg DAILY SC 09/20/25 10:00 Examination General: Patient alert and oriented in person, place and time. Patient following commands. HEENT: Normocephalic, atraumatic, moist mucous membranes Respiratory/pulmonary: Clear lungs bilaterally, vesicular murmurs present in almost all lung avalos, no associated crackles or wheezes. Cardiovascular: Normal heart sounds S1 and S2 with no associated murmurs Abdomen: Abdomen nondistended, there is no pain to palpation in any of the abdominal quadrants, no palpable masses. obese abdomen Extremities: bilateral leg edema Peripheral Pulses: 3+ Radial (R). 3+ Radial (L). 3+ Dorsalis pedis (R). 3+ Dorsalis pedis(L) Skin: No rashes or pruritus, there is no sacral edema present at this time. Neurological: Intact cranial nerves with no focal neurologic deficits laboratory and microbiology Laboratory Tests 09/19/25 11:54 09/19/25 06:58 Test 09/19/25 11:54 Range/Units Serum Glucose 100 74-106 mg/dL Problem List/Assessment/Plan Problem List/Assessment/Plan Acute gastroenteritis -IV fluid -IV Levaquin and IV metronidazole (patient has Keflex allergy) -IV ondansetron (check EKG) -Tylenol as needed BROOK likely due to VMN IV fluid Avoid nephrotoxic drugs Discontinued lisinopril Dyslipidemia Continue atorvastatin calcium 20 mg Hypertensive heart disease Diastolic heart failure with preserved ejection EKG ordered, please follow up Lisinopril 40 mg tablet held due to impaired kidney function Current blood pressure 119/60, monitor Metoprolol tartrate 25 mg tablet Patient has allergies to Farxiga Mild normocytic anemia GI prophylaxis: Pantoprazole DVT prophylaxis: Lovenox Diet: cardiac diet Goals of care discussed with the patient for more than 27 minutes: Full code status Case discussed with Dr. Woodard. Plan discussed with: Patient My Orders My Orders Orders - JONO SWEET Procedure Category Date Status Time Electrocardigram EKG 09/19/25 Logged 11:39 Electrocardigram EKG 09/19/25 Logged 12:39 Electrocardigram EKG 09/19/25 Logged 14:39 Echo 2d Mode Cardiac US 09/19/25 Resulted DOP 11:39 Pantoprazole PHA 09/19/25 In Process (Protonix) 22:00 Cardiac DIET 09/20/25 Transmitted Diet-2gna,Lofat,Lochol Breakfast Drug Screen LAB 09/19/25 Logged 18:49 Date of Service: Sep 19, 2025 Billing Provider: RADU WOODARD MD Common Visit Codes: NOT BILLABLE JONO SWEET Sep 19, 2025 19:49 RADU WOODARD MD Sep 19, 2025 20:53
[2025-09-19 21:00] VITALS: BP 103/56; PULSE 66; RESP 17; TEMP 98; O2SAT 96
[2025-09-19] MEDS: ATORVASTATIN 20 MG TAB PO SCH (21:28)
[2025-09-19] MEDS: PANTOPRAZOLE 40 MG/10 ML VIAL INJ IV SCH (21:28)
[2025-09-20] MEDS: HYDROmorphone HCL 2 MG/ML VL/or syr IV ONE (00:36)
[2025-09-20 01:00] VITALS: BP 114/58; PULSE 70; RESP 17; TEMP 98.1; O2SAT 93
[2025-09-20 03:58] LABS: Urine Protein, UAD Negative (Negative)
[2025-09-20 05:00] VITALS: BP 117/54; PULSE 66; RESP 18; TEMP 98.2; O2SAT 98
[2025-09-20 05:00] LABS: Protein, Urine 21.4 mg/dL (1-14); Protein, Urine 22.0 mg/dL (1-14)
[2025-09-20 05:02] LABS: Amphetamine Screen, Urine Pos (NEGATIVE); Barbiturate Scree,Urine Neg (NEGATIVE); Benzodiazephine Screen, Urine Neg (NEGATIVE); Opiate Scree,Urine Neg (NEGATIVE); Phencyclidine Screen, Urine Neg (NEGATIVE)
[2025-09-20 05:25] LABS: Cannabinoid Screen, Urine Neg (NEGATIVE); Cocaine Screen, Urine Neg (NEGATIVE)
[2025-09-20 06:02] LABS: Hemoglobin 10.8 g/dL (12.2-16.2); Nucleated Red Blood Cells % 0.1 %
[2025-09-20 06:05] LABS: Hematocrit 33.8 % (36.0-46.0); Mean Corpuscular Hemoglobin 26.8 pg (28.0-32.0); Mean Corpuscular Volume 83.7 fL (80.0-100.0)
[2025-09-20 06:32] LABS: Potassium 3.9 mmol/L (3.5-5.1); Sodium 140 mmol/L (136-145)
[2025-09-20 06:33] LABS: Anion Gap 10 (5-15)
[2025-09-20 06:36] LABS: Calcium 8.3 mg/dL (8.7-10.4); Carbon Dioxide 20 mmol/L (20-31); Chloride 110 mmol/L (98-107)
[2025-09-20 06:39] LABS: BUN/Creatinine Ratio 39.1 (10.0-20.0)
[2025-09-20 06:45] LABS: Blood Urea Nitrogen 36 mg/dL (9-23); Glucose 118 mg/dL (74-106)
[2025-09-20 08:00] VITALS: PULSE 75; RESP 18; O2SAT 97
[2025-09-20 09:00] VITALS: BP 133/62; PULSE 73; RESP 16; TEMP 98.1; O2SAT 95
[2025-09-20] MEDS: ONDANSETRON HCL 4 MG/2 ML VIAL IV ONE (09:09)
[2025-09-20] MEDS: ENOXAPARIN SOD 40 MG/0.4 ML SYRINGE SC SCH (09:13)
[2025-09-20 13:00] VITALS: BP 132/63; PULSE 57; RESP 17; TEMP 98.1; O2SAT 97
[2025-09-20] MEDS ORDERED: PANT40T PO (14:53)
[2025-09-20] MEDS ORDERED: LEVO750T40 PO (14:53)
[2025-09-20] MEDS ORDERED: METR-344 PO (14:53)
--- NOTE | 2025-09-20 15:20 | DVHDSRES ---
Discharge Summary Date of Admission Resident Creating Document: JONO SWEET Sep 19, 2025 at 01:55 Date of Discharge: Sep 20, 2025 Admitting Diagnosis Acute gastroenteritis Labs/Diagnostic Data: Laboratory Results Test 09/20/25 04:50 09/20/25 03:25 09/19/25 14:11 09/19/25 13:38 White Blood Count 6.7 10^3/uL (4.4-10.8) Red Blood Count 4.04 10^6/uL (4.0-5.20) Hemoglobin 10.8 g/dL (12.2-16.2) Hematocrit 33.8 % (36.0-46.0) Mean Corpuscular Volume 83.7 fL (80.0-100.0) Mean Corpuscular Hemoglobin 26.8 pg (28.0-32.0) Mean Corpuscular Hemoglobin Concent 32.0 g/dL (32.0-36.0) Red Cell Distribution Width 15.2 % (11.8-14.3) Platelet Count 258 10^3/uL (140-450) Mean Platelet Volume 9.5 fL (6.9-10.8) Neutrophils (%) (Auto) 56.8 % (37.0-80.0) Lymphocytes (%) (Auto) 32.3 % (10.0-50.0) Monocytes (%) (Auto) 8.5 % (0.0-12.0) Eosinophils (%) (Auto) 1.7 % (0.0-7.0) Basophils (%) (Auto) 0.7 % (0.0-2.0) Neutrophils # (Auto) 3.8 10 ^3/uL (1.6-8.6) Lymphocytes # (Auto) 2.2 10 ^3/uL (0.4-5.4) Monocytes # (Auto) 0.6 10 ^3/uL (0-1.3) Eosinophils # (Auto) 0.1 10 ^3/uL (0-0.8) Basophils # (Auto) 0 10 ^3/uL (0-0.2) Nucleated Red Blood Cells 0.1 % Sodium Level 140 mmol/L (136-145) Potassium Level 3.9 mmol/L (3.5-5.1) Chloride Level 110 mmol/L (98-107) Carbon Dioxide Level 20 mmol/L (20-31) Anion Gap 10 (5-15) Blood Urea Nitrogen 36 mg/dL (9-23) Creatinine 0.92 mg/dL (0.550-1.02) Glomerular Filtration Rate Calc 77 mL/min (>90) BUN/Creatinine Ratio 39.1 (10.0-20.0) Serum Glucose 118 mg/dL (74-106) Calcium Level 8.3 mg/dL (8.7-10.4) Urine Color Light-yellow (Yellow) Urine Clarity Clear (Clear) Urine pH 6.0 (5.0-9.0) Urine Specific [place] 1.018 (1.001-1.035) Urine Protein Negative (Negative) Urine Ketones Negative (Negative) Urine Blood Negative /uL (Negative) Urine Nitrite Negative (Negative) Urine Bilirubin Negative (Negative) Urine Urobilinogen Normal mg/dL (Negative) Urine Leukocyte Esterase Negative /uL (Negative) Urine RBC <1 /hpf (0 - 4) Urine Microscopic WBC 1 /HPF (0-5) Urine Squamous Epithelial Cells Few /hpf (<5) Urine Bacteria None seen /hpf (None Seen) Urine Creatinine 72.52 mg/dL (30.0-125.0) Urine Protein/Creatinine Ratio 0.30 Urine Sodium 28 mmol/L (40-220) Urine Glucose Normal mg/dL (Normal) Urine Total Protein 22.0 mg/dL (1-14) Urine Opiates Screen Neg (NEGATIVE) Urine Fentanyl Screen Pos (NEGATIVE) Urine Barbiturates Screen Neg (NEGATIVE) Urine Phencyclidine Screen Neg (NEGATIVE) Urine Amphetamines Screen Pos (NEGATIVE) Urine Benzodiazepines Screen Neg (NEGATIVE) Urine Cocaine Screen Neg (NEGATIVE) Urine Cannabinoids Screen Neg (NEGATIVE) Erythrocyte Sedimentation Rate 25 mm/hr (0-20) Troponin I High Sensitivity 10 ng/L (</=34) Test 09/19/25 11:55 09/19/25 11:54 09/19/25 06:58 09/18/25 23:22 Thyroid Stimulating Hormone (TSH) 0.84 uIU/mL (0.55-4.78) Magnesium Level 2.6 mg/dL (1.6-2.6) C-Reactive Protein High Sensitivity 1.22 mg/dL (<1.0) Triglycerides Level 98 mg/dL (< 150) Cholesterol Level 133 mg/dL (< 200) LDL Cholesterol 75 mg/dL (< 100) HDL Cholesterol 44 mg/dL (40-59) Hemoglobin A1c < 3.8 % A1C (<5.7) Total Bilirubin 0.3 mg/dL (0.2-1.0) Aspartate Amino Transferase (AST) 35 U/L (13-40) Alanine Aminotransferase (ALT) 32 U/L (7-40) Alkaline Phosphatase 108 U/L (46-116) B-Type Natriuretic Peptide 33.02 pg/mL (0-100) Total Protein 6.9 g/dL (5.7-8.2) Albumin 4.0 g/dL (3.2-4.8) Lipase 71 U/L (12-53) Beta HCG, Quantitative 5.0 mIU/mL (1.5-4.2) Other Laboratory Tests 09/20/25 04:50 Brief Hx & Hospital Course: Jennifer Guzman, a 49-year-old female with past medical history of heart failure with preserved ejection fraction with 3 angiograms, noninsulin dependent type 2 diabetes mellitus, fibromyalgia, hyperlipidemia, hypertension, GERD, history of CVA without any weakness, hospitalization for 5 and half months due to COVID-19 (3 years ago), restless leg syndrome, rectocele, cystocele with bladder lift surgery, 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 The patient reports the pain as sudden onset, 8/10 currently, radiates to the groin and back associated with nonbloody greenish vomiting. She feels feverish, however she did not measure temperature at home. She also reports having frequent diarrhea. She denies any sick contacts or travel history or recent antibiotic use. She denies any chest pain, shortness of breaths, urinary symptoms or any other complaints. Patient does state she has mild chest pain which comes and goes. Patient is a very poor historian and states she has periumbilical pain and right upper quadrant pain, hot flashes, is very tired and weak. Patient also states she has numbness and states that at home she was in the bathroom for 2 hours having diarrhea. Past surgical history: Angiogram, bilateral tubal ligation Allergies: Keflex, Farxiga Home medications: Atorvastatin, levofloxacin, lisinopril, metoprolol, pantoprazole social history: Denies smoking, ex alcohol use, smokes marijuana occasionally. Brief hospital course: Patient Came to the hospital with chief complaints of abdominal pain. Patient has acute viral or bacterial gastroenteritis for which IV fluids, IV Levaquin and IV metronidazole were started, Tylenol was given as needed. Patient had BROOK likely due to be [place] which resolved with IV fluids, avoid nephrotoxic drugs. Patient has this dyslipidemia for which 20 mg atorvastatin was started. Patient has hypertensive heart disease, diastolic heart failure with preserved ejection fraction for which EKG was ordered and Cardiology also was consulted for which they said the so chronic changes. And cleared for discharge. Lisinopril 40 mg tablet was her due to impaired kidney function. Metoprolol tartrate 25 mg tablet was given. Patient has allergies to Farxiga. Patient has mild normocytic anemia for which monitored labs. Patient is stable for discharge and has understood her discharge plan. Patient is to follow-up with discharge Clinic and her PCP. General: Patient alert and oriented in person, place and time. Patient following commands. HEENT: Normocephalic, atraumatic, moist mucous membranes Respiratory/pulmonary: Clear lungs bilaterally, vesicular murmurs present in almost all lung avalos, no associated crackles or wheezes. Cardiovascular: Normal heart sounds S1 and S2 with no associated murmurs Abdomen: Abdomen nondistended, there is no pain to palpation in any of the abdominal quadrants, no palpable masses. obese abdomen Extremities: bilateral leg edema Peripheral Pulses: 3+ Radial (R). 3+ Radial (L). 3+ Dorsalis pedis (R). 3+ Dorsalis pedis(L) Skin: No rashes or pruritus, there is no sacral edema present at this time. Neurological: Intact cranial nerves with no focal neurologic deficits Patient is to take Levofloxacin 750 mg p.o. daily Metronidazole 500 mg p.o. daily Pantoprazole 40 mg p.o. b.i.d. Patient is to follow-up with PCP, discharge Clinic Operations or Procedures ORDERING PHYSICIAN: ROSALINA LIND RESIDENT PROCEDURE(s): ABPL - CT AB PEL WO CON-NO ORAL OR IV REASON: severe abdominal pain ORDER NUMBER(s): [id number], ACCESSION NUMBER(s): [id number] Exam: CT CT AB PEL WO CON-NO ORAL OR IV History: severe abdominal pain Comparison Study: CT CT AB PEL WO CON-NO ORAL OR IV on DOS: 10/21/24 Technique: Multidetector spiral CT of the abdomen was performed from lung bases to pubic symphysis. Imaging was performed without IV contrast. Axial, coronal and sagittal multiplanar reformats were obtained from the axial data set by the technologist. Radiation Dose : 1. Abdomen/Pelvis: CTDIvol 26.1 mGy, DLP 1527.13 mGy*cm. Findings: Evaluation of solid organs is limited due to lack of intravenous contrast use. Lower Chest: No acute findings. Mitral annular calcification. Liver: Diffuse hypoattenuation. Gallbladder and Biliary Tree: Unremarkable Pancreas: Moderate atrophy. Spleen: Unremarkable. Adrenal Glands: Unremarkable. Kidneys/Ureters: No urinary stone or obstruction. Bladder: Grossly unremarkable for degree of distention. Pelvic Organs: Absent uterus. Bowel: Normal caliber without wall thickening. Normal appendix. Vasculature: Unremarkable. Lymphadenopathy: No obvious adenopathy. Peritoneum: No ascites, free air, or fluid collection. Abdominal Wall: No significant hernia. Musculoskeletal: No acute findings. Degenerative change of the spine and pelvis. IMPRESSION: 1. No acute abdominopelvic abnormality, evidence of urinary stone or obstruction. Radiation optimization: All CT scans at this facility use at least one of these dose optimization techniques: automated exposure control mA and/or kV adjustment per patient size (includes targeted exams where dose is matched to clinical indication) or iterative reconstruction. ATED BY: KIMBERLY BRITO MD DICTATED DATE/TIME: 09/19/25 0143 ORDERING PHYSICIAN: FRANCIA CARPENTER RESIDENT PROCEDURE(s): ABDC - ABDOMEN COMPLETE SONOGRAM REASON: Abdominal pain, BROOK ORDER NUMBER(s): [id number], ACCESSION NUMBER(s): [id number] INDICATION: Abdominal pain, BROOK TECHNIQUE: Multiple real-time sonographic images of the abdomen were obtained. COMPARISON: US GALLBLADDER on DOS: 10/21/24 FINDINGS: The liver is homogenous in echogenicity. The liver measures 16.2 cm. No intrahepatic biliary ductal dilatation is noted. The gallbladder wall measures 0.3 cm and is unremarkable. The gallbladder is contracted. The common duct is not visualized. No pericholecystic fluid is noted. Negative sonographic Ramos's sign. The right kidney measures 11.3 cm. No hydronephrosis. The left kidney measures 10.8 cm. No hydronephrosis. The spleen measures 8.0 cm, within normal limits. The echogenicity is within normal limits. The pancreas is not well visualized due to obscuration from bowel gas. The visualized portions of the IVC and aorta are grossly unremarkable. IMPRESSION: 1. Contracted gallbladder. 2. Common bile duct is not visualized. ATED BY: RENE WELLS MD DICTATED DATE/TIME: 09/19/25 08 Condition at Discharge: Stable Final Diagnosis/Problems List Acute vrial gastroenteritis BROOK likely due to [facility] Dyslipidemia Hypertensive heart disease Diastolic heart failure with preserved ejection Mild normocytic anemia Discharge Disposition: Home Discharge Instruct/Medications Diet: Cardiac 2g Na,low cholest Activity: No Restrictions, As Tolerated Follow Up/Referral: Follow-up with discharge Clinic Follow-up with PCP Follow-up with java oracle developer Medications: As per EMR Scheduled Atorvastatin Calcium (Atorvastatin Calcium), 1 TAB PO DAILY, (Reported) Levofloxacin Hemihydrate (Levaquin 500 Mg), 1 TAB PO DAILY Levofloxacin Hemihydrate (Levofloxacin), 1 TAB PO DAILY Lisinopril (Lisinopril), 1 TAB PO DAILY, (Reported) Metoprolol Tartrate (Lopressor), 1 TAB PO BID, (Reported) Metronidazole (Flagyl), 1 TAB PO TID Pantoprazole Sodium Sesquihydr (Pantoprazole Sodium), 1 TAB PO DAILY, (Reported) Pantoprazole Sodium Sesquihydr (Pantoprazole Sodium), 40 MG PO BID Potassium Chloride (Potassium Chloride ER), 1 TAB PO DAILY, (Reported) Discharge Statement: "Patient was advised to return to the ER or call 911 if any headaches, dizziness, shortness of breath, chest pain, abdominal pain, bleeding, fevers, or worsening of medical condition. Patient was counseled about treatment plan, medications, possible side effects, patientverbalized understanding. All questions were answered to the best of my ability. This discharge took greater then 30 minutes in planning, reviewing documentation, counseling the patient, and discussing with other team members." ASSESSMENT ASSESSMENT Assessment Acute vrial gastroenteritis Date of Service: Sep 20, 2025 Billing Provider: RADU WOODARD MD Common Visit Codes: 52382-HHG/OBS DISCH DAY >30min JONO SWEET RESIDENT Sep 20, 2025 15:20 RADU WOODARD MD Sep 22, 2025 13:21
--- NOTE | 2025-09-20 16:54 | ECG ---
[facility] Test Date: 2025-09-19 Test Time: 12:12:05 Pat Name: MISTY SOLIS Department: Room: [address] [place] [address] A Gender: F Mapping Specialist: KAVON : 1975 Requested By: FRANCIA CARPENTER Order Number: [id number] Reading MD: Nikolai Montiel Measurements Intervals [place] Rate: 53 P: -1 W[place]: 157 QRS: 32 QRSD: 114 T: 65 QT: 521 QTc: 490 Interpretive Statements Sinus rhythm Borderline intraventricular conduction delay Abnormal R-wave progression, early transition ST elevation suggests acute pericarditis Borderline prolonged QT interval Electronically Signed On 09-20-2025 19:25:42 PST by Nikolai Montiel Please click the below link to view image of tracing.
== END 2025-09-20 15:35 | disposition home or self-care (01) | DRG 391 ==
LOC: ER 22:18 → EDBD 22:18 → OVERFLOW 09-19 01:55
PROVIDERS: ADMIT Internal Medicine; ATTEND Internal Medicine
DX: A08.4 Viral intestinal infection, unspecified (principal); N17.0 Acute kidney failure with tubular necrosis; I50.32 Chronic diastolic (congestive) heart failure; E66.01 Morbid (severe) obesity due to excess calories; E11.22 Type 2 diabetes mellitus with diabetic chronic kidney disease; D64.9 Anemia, unspecified; E78.5 Hyperlipidemia, unspecified; I13.0 Hypertensive heart and chronic kidney disease with heart failure and stage 1 through stage 4 chronic kidney disease, or unspecified chronic kidney disease; N18.9 Chronic kidney disease, unspecified; F10.20 Alcohol dependence, uncomplicated; Z68.41 Body mass index [BMI] 40.0-44.9, adult; M79.7 Fibromyalgia; K21.9 Gastro-esophageal reflux disease without esophagitis; I25.2 Old myocardial infarction; Z82.3 Family history of stroke; Z79.4 Long term (current) use of insulin; Z86.73 Personal history of transient ischemic attack (TIA), and cerebral infarction without residual deficits; Z88.1 Allergy status to other antibiotic agents; Z79.899 Other long term (current) drug therapy; Z90.710 Acquired absence of both cervix and uterus; Y90.9 Presence of alcohol in blood, level not specified
CPT/HCPCS: 36415; 74176; 76700; 80048; 80053; 80061; 80307; 81001; 82570; 83036; 83690; 83735; 83880; 84156; 84300; 84443; 84484; 84702; 85025; 85652; 86141; 93005; 93306; 96365; 96367; 96375; G0378; J1885; J1956; J2470; J3490